=== PATIENT | male | born 1955 | race Caucasian/White ===

== ENCOUNTER → 2017-09-26 15:09 | Outpatient (CLI) | payer BC, SELFPAY ==
--- NOTE | 2017-09-26 15:19 | MR_ITS ---
MR head/brain wo con Ordering Physician: Naty Greene MD Patient Age: 61 years: Male HISTORY: ITS.REASON: IMBALANCE Balance problems 2 weeks. Not disease but off balance that comes and goes. More left side. Worsened morning. TECHNIQUE: : Noncontrast Multiplanar FLAIR, T1, T2 weighted images along with axial diffusion/ADC imaging performed on 1.5 T. Siemens, MRI.. COMPARISON : FINDINGS Diffusion images show no recent infarct. Normal cranial cervical junction. Sella and to a dalila unremarkable. The ventricles and basal cisterns appear satisfactory. No territorial infarct no subdural collection. A few faint tiny high signal deep white matter foci seen at cerebral hemispheres anteriorly barely evident as seen on axial image 17. Period most compatible a few pinpoint small vessel deep white matter ischemic foci, seen agent brain. . Orbits and globes unremarkable. Borderline mucosal thickening ethmoid air cells. Sphenoid sinus frontal sinus clear unremarkable. Only scant mucosal thickening inferior right > left maxillary sinuses on sagittal view Posterior fossa. Cranial nerve VII and VIII unremarkable CP angles clear IACs unremarkable. Mastoid air cells well aerated and clear. Cerebellum satisfactory cranial cervical junction satisfactory. IMPRESSION: . No mass. No subdural collection . No acute infarct MRI the brain basically normal for age-Only note very few very faint pinpoint high signal foci deep white matter most compatible with a few small vessel deep white matter ischemic foci in this age patient Regarding imbalance symptoms: posterior fossa & IACs unremarkable.
== END ==
PROVIDERS: PCP Family Medicine; Visit Provider Family Medicine
DX: R26.89 Other abnormalities of gait and mobility (principal)
CPT/HCPCS: 70551

== ENCOUNTER → 2018-01-09 09:31 | Outpatient (CLI) | payer BC, SELFPAY ==
--- NOTE | 2018-01-09 09:36 | XR_ITS ---
EXAM: XR lumbar spine min 4V HISTORY: ITS.REASON: LUMBAGO WITH SCIATICA ORDERING PHYSICIAN: Naty Greene MD PATIENT AGE: 62 years COMPARISON: FINDINGS: There is normal alignment. There is mild degenerative disc disease at L1-L2 and L4-L5. Minimal anterolisthesis of L5 on S1 of 3 mm. There is 2.8 cm area of sclerosis involving the right ilium at the SI joint area not significantly changed from 01/29/2013. Mild facet arthritic changes are present at L5-S1. IMPRESSION: 1. Mild degenerative disc disease L1-L2 and L2-L3 with facet arthritic changes at L5-S1. The degenerative disc disease is slightly worse when compared to the previous exam
== END ==
PROVIDERS: PCP Family Medicine; Visit Provider Family Medicine
DX: M54.42 Lumbago with sciatica, left side (principal)
CPT/HCPCS: 72110

== ENCOUNTER → 2020-08-13 16:30 | Outpatient (CLI) | payer MEDICARE, OTHER, SELFPAY ==
[2020-08-13 17:41] LABS: Basophils # 0.1 K/mm3 (0-0.2); Basophils % 1.4 % (0.1-2.0); Eosinophils # 0.1 K/mm3 (0.0-0.4); Eosinophils % 2.6 % (0.1-12.0); Hematocrit 44.3 % (42.0-52.0); Hemoglobin 15.1 g/dL (14.1-18.0); Lymphocytes # 1.5 K/mm3 (0.7-4.5); Lymphocytes % 26.9 % (10-50); Mean Corpuscular Volume 94.3 fl (80-94); Mean Platelet Volume 8.3 fl (7.4-10.4); Monocytes # 0.4 K/mm3 (0.1-1.0); Monocytes % 7.3 % (1.7-9.3); Neutrophils # 3.4 K/mm3 (1.8-7.8); Neutrophils % 61.8 % (37.0-80.0); Platelet Count 185 K/mm3 (142-424); Red Cell Distribution Width 14.6 % (11.5-17.5); White Blood Count 5.5 K/mm3 (4.8-10.8)
== END ==
PROVIDERS: PCP Family Medicine; Visit Provider Physician Assistant
DX: Z03.818 Encounter for observation for suspected exposure to other biological agents ruled out (principal)
CPT/HCPCS: 36415; 85025; U0003

== ENCOUNTER → 2022-01-29 13:47 | Outpatient (CLI) | payer MEDICARE, OTHER, SELFPAY ==
[2022-02-05 15:10] LABS: 1,25 Dihydroxy Vitamin D 33 pg/mL (.); 1,25-Dihydroxy, Vitamin D-2 21 pg/mL (.); 1,25-Dihydroxy, Vitamin D-3 12 pg/mL (.)
== END ==
PROVIDERS: PCP Family Medicine; Visit Provider Orthopaedic Surgery
DX: E55.9 Vitamin D deficiency, unspecified (principal)
CPT/HCPCS: 36415; 82652

== ENCOUNTER 2023-01-20 11:00 | Outpatient (RCR) | payer MEDICARE, OTHER, SELFPAY ==
--- NOTE | 2022-12-08 12:08 | HMH.PTOPEV ---
PT Outpatient Evaluation Rehab PT Outpatient Evaluation Start: 12/08/22 11:05 Freq: Status: Active Protocol: Document 12/08/22 11:05 DAPHNE (Rec: 12/08/22 12:07 DAPHNE [id number]) E-signed By Lydia Mitchell, PT Outpatient Therapy Subjective History Subjective History Pt is a 67 y/o male who reports to PT s/p R lapidus bunionectomy and 2nd hammer toe repair on 10/12/22. Pt denies complications or falls post-surgery. Pt reports he has a constant dull ache on the top of his foot along his incisions and numbness along the top & bottom of the foot. Pt reports he also gets intermittent sharp, shooting pain along the 1st and 2nd toes. Pt reports his main complaint is continued swelling with inability to wear a shoe on the R foot. Pt reports he had a followup with his MD yesterday where they took radiographs with good report. Pt reports he returns to his MD for another follow- up in 2 months. Medical History: Pre-diabetic Girth: 26 cm at MT, 26.5 cm at proximal incision Chief Complaint Pain,Stiff,Swelling, Paresthesia Symptom Type Sharp,Dull,Numbness,Shooting Symptoms Relieved By Ice,Elevation Symptoms Aggravated By Physical Activity,Walking Prior Functional Limitations None Current Functional Limitations Standing,Recreation Activity, Walking Symptom Description Constant but Variable Level of pain today (0-10) 1 Pain scale - at its best (0-10) 1 Pain scale - at its worst (0-10) 7 Ankle/Foot Eval Gait Observation General Gait Pattern Observation Antalgic Gait,Decrease Weight Bear (R) Assistive Device Ambulation Assistive Device None Palpation Tenderness right Ankle/Foot Palpation Overall Comment 1st and 2nd toe ROM Ankle/Foot Dorsiflexion w/Knee Extended 15 Active Range Motion (degrees) Ankle/Foot Plantar Flexion Active Range 40 of Motion (degrees) Ankle/Foot Eversion Active Range of 20 Motion (degrees) Ankle/Foot Inversion Active Range of 20 Motion (degrees
--- NOTE | 2023-01-05 12:02 | HMH.RHREAS ---
Rehab Reassessment Rehab OP Re-assessment Start: 01/05/23 11:45 Freq: Status: Active Protocol: Document 01/05/23 11:45 DAPHNE (Rec: 01/05/23 12:01 DAPHNE [id number]) E-signed By Lydia Mitchell PT Rehab Re-assessment Subjective Subjective Pt reports he feels 50% or more improved since starting PT. Pt reports general pain of the foot with prolonged activity but states he is able to walk longer and perform yard work now. Pt reports he has intermittent brief sharp shooting pain along the great toe that randomly occur without provocation rated 8/10 . Pt also reports continued numbness along the top and bottom of all toes although slightly improved on the dorsal aspect of the foot. Pt states he continues to have swelling with inability to don a tennis shoe for longer than 30 minutes. Pt reports he has been wearing Hey Dudes because they are the only shoe he feels comfortable in due to swelling. Pt reports he is compliant with his HEP and has been wearing compression socks. Objective Objective Notes R ankle palpation: pain along anterior tibialis and dorsum of the great toe R ankle AROM: 15 DF, PF 40, Inv 30, Ev 25 R ankle MMT: 5/5 grossly, pain with resisted dorsiflexion and eversion R ankle edema: 25 cm circumference of MTP, 25 cm at proximal incision (26.5 cm on IE) R great to extension/flex: 30/ 20 Gait: FWB without AD, non- antalgic Assessment Progress Assessment Progressing as Expected Assessment Notes Pt has attended 7 PT visits consisting of aerobic exercise , CAREN lewis
== END 2023-01-20 11:05 | disposition home or self-care (01) ==
LOC: PT 11:00
PROVIDERS: PCP Family Medicine; Visit Provider Orthopaedic Surgery
DX: M79.671 Pain in right foot (principal)
CPT/HCPCS: 97010; 97014; 97016; 97110; 97112; 97140; 97163; 97164; 97530; G0283

== ENCOUNTER → 2023-02-08 12:47 | Outpatient (CLI) | payer MEDICARE, OTHER, SELFPAY ==
--- NOTE | 2023-02-08 12:50 | CT_ITS ---
FINAL REPORT TECHNIQUE: Thin section axial CT images with coronal and sagittal reformats were performed. This study was performed with techniques to keep radiation doses as low as reasonably achievable (ALARA). Individualized dose reduction techniques using automated exposure control or adjustment of mA and/or kV according to the patient''s size were employed. CLINICAL HISTORY: FIRST METATARSAL FX FINDINGS: There are postoperative changes in the medial midfoot and forefoot with screw plate and multiple screws. There are postoperative changes of the distal 2nd metatarsal. There is medial subluxation of the 1st proximal phalanx at the metatarsophalangeal joint. There are degenerative changes of the medial midfoot. There is chronic calcification inferior to the medial malleolus. Probable lipoma is seen in the calcaneal tuberosity. IMPRESSION: Postsurgical changes as detailed above. Probable lipoma in the calcaneal tuberosity. Reviewed, Interpreted and Dictated by Maximiliano Mccartney III, MD Transcribed by Tara Sparks Authenticated and [facility]
[2023-02-08 13:36] LABS: Basophils % 0.8 % (0.1-2.0); Eosinophils # 0.2 K/mm3 (0.0-0.4); Hemoglobin 15.9 g/dL (14.1-18.0); Lymphocytes # 1.2 K/mm3 (0.7-4.5); Lymphocytes % 22.1 % (10-50); Mean Corpuscular HGB Conc 31.9 g/dL (31.8-35.4); Mean Corpuscular Hemoglobin 29.3 pg (27.0-31.2); Mean Corpuscular Volume 91.9 fl (80-94); Mean Platelet Volume 8.2 fl (7.4-10.4); Monocytes # 0.4 K/mm3 (0.1-1.0); Monocytes % 6.3 % (1.7-9.3); Neutrophils # 3.8 K/mm3 (1.8-7.8); Neutrophils % 67.9 % (37.0-80.0); Platelet Count 182 K/mm3 (142-424); Red Blood Count 5.44 M/mm3 (4.60-6.20); Red Cell Distribution Width 14.2 % (11.5-17.5); White Blood Count 5.6 K/mm3 (4.8-10.8)
[2023-02-08 14:14] LABS: Alanine Aminotransferase 26 U/L (12-78); Albumin Level 4.5 g/dl (3.5-5.0); Alkaline Phosphatase 89 U/L (38-126); Anion Gap 14.6 mEq/L (5-15); Aspartate Amino Transferase 34 U/L (17-59); Bilirubin,Total 0.7 mg/dl (0.2-1.3); Blood Urea Nitrogen 15 mg/dl (9-20); Carbon Dioxide 26 mmol/L (22.0-30.0); Chloride 102 mmol/L (98-107); Estimated Glomerular Filt Rate 84 ml/min (>60); GFR (African American) 101 ML/MIN (>60); Globulin 2.2 g/dL (1.3-3.2); Glucose 92 mg/dl (74-100); Potassium 4.6 mmoL/L (3.5-5.1); Sodium 138 mmol/L (136-145); Total Protein,Serum 6.7 g/dl (6.3-8.2)
[2023-02-08 14:21] LABS: C-Reactive Protein 2.2 mg/L (0-4)
[2023-02-08 14:44] LABS: Thyroid Stimulating Hormone 2.37 uIU/mL (0.465-4.68)
[2023-02-08 16:40] LABS: Erythrocyte Sedimentation Rate 1 mm/hr (0-20)
[2023-02-09 10:46] LABS: Prealbumin 26 mg/dL (10-36)
[2023-02-16 05:19] LABS: 1,25 Dihydroxy Vitamin D 36 pg/mL (.); 1,25-Dihydroxy, Vitamin D-2 23 pg/mL (.); 1,25-Dihydroxy, Vitamin D-3 13 pg/mL (.)
== END ==
PROVIDERS: PCP Family Medicine; Visit Provider Orthopaedic Surgery
DX: M79.671 Pain in right foot (principal); M96.0 Pseudarthrosis after fusion or arthrodesis; E11.9 Type 2 diabetes mellitus without complications; Z79.84 Long term (current) use of oral hypoglycemic drugs; Z79.899 Other long term (current) drug therapy
CPT/HCPCS: 36415; 73700; 80053; 82652; 84134; 84443; 85025; 85651; 86140

== ENCOUNTER → 2023-08-05 13:40 | Outpatient (CLI) | payer MEDICARE, OTHER, SELFPAY ==
[2023-08-05 14:33] LABS: Basophils % 0.5 % (0.1-2.0); Eosinophils # 0.1 K/mm3 (0.0-0.4); Eosinophils % 2.3 % (0.1-12.0); Hematocrit 45.7 % (42.0-52.0); Hemoglobin 15.4 g/dL (14.1-18.0); Lymphocytes # 1.1 K/mm3 (0.7-4.5); Mean Corpuscular HGB Conc 33.7 g/dL (31.8-35.4); Mean Corpuscular Hemoglobin 31.3 pg (27.0-31.2); Mean Corpuscular Volume 92.8 fl (80-94); Mean Platelet Volume 8.6 fl (7.4-10.4); Monocytes # 0.4 K/mm3 (0.1-1.0); Monocytes % 8.3 % (1.7-9.3); Neutrophils # 2.7 K/mm3 (1.8-7.8); Neutrophils % 62.9 % (37.0-80.0); Platelet Count 158 K/mm3 (142-424); Red Blood Count 4.92 M/mm3 (4.60-6.20); Red Cell Distribution Width 14.1 % (11.5-17.5); White Blood Count 4.3 K/mm3 (4.8-10.8)
[2023-08-05 14:51] LABS: Chloride 105 mmol/L (98-107); Potassium 4.3 mmoL/L (3.5-5.1); Sodium 139 mmol/L (136-145)
[2023-08-05 14:53] LABS: Alanine Aminotransferase 33 U/L (12-78); Alkaline Phosphatase 77 U/L (38-126); Aspartate Amino Transferase 35 U/L (17-59); Bilirubin,Total 0.5 mg/dl (0.2-1.3); Blood Urea Nitrogen 18 mg/dl (9-20); Estimated Glomerular Filt Rate 74 ml/min (>60); GFR (African American) 90 ML/MIN (>60)
[2023-08-05 14:54] LABS: Albumin Level 4.6 g/dl (3.5-5.0); Albumin/Globulin Ratio 2.2 (1.1-1.8); Anion Gap 12.3 mEq/L (5-15); Calcium 8.9 mg/dl (8.4-10.2); Carbon Dioxide 26 mmol/L (22.0-30.0); Globulin 2.1 g/dL (1.3-3.2); Glucose 122 mg/dl (74-100); Total Protein,Serum 6.7 g/dl (6.3-8.2)
[2023-08-05 15:00] LABS: C-Reactive Protein 2.2 mg/L (0-4)
[2023-08-05 15:29] LABS: Hemoglobin A1C 5.8 % (4.0-6.0)
[2023-08-05 16:17] LABS: Erythrocyte Sedimentation Rate 5 mm/hr (0-20)
[2023-08-05 18:59] LABS: Thyroid Stimulating Hormone 1.89 uIU/mL (0.465-4.68)
[2023-08-06 10:05] LABS: Prealbumin 25 mg/dL (10-36)
[2023-08-15 15:09] LABS: 1,25 Dihydroxy Vitamin D 60 pg/mL (.); 1,25-Dihydroxy, Vitamin D-2 43 pg/mL (.); 1,25-Dihydroxy, Vitamin D-3 17 pg/mL (.)
== END ==
PROVIDERS: PCP Family Medicine; Visit Provider Orthopaedic Surgery
DX: M20.11 Hallux valgus (acquired), right foot (principal); R73.09 Other abnormal glucose; Z79.899 Other long term (current) drug therapy
CPT/HCPCS: 36415; 80053; 82652; 83036; 84134; 84443; 85025; 85651; 86140

== ENCOUNTER 2023-12-29 06:30 | Outpatient (CLI) | payer MEDICARE, OTHER, SELFPAY ==
--- NOTE | 2023-12-29 06:36 | CT_ITS ---
FINAL REPORT TECHNIQUE: Thin section axial CT images with coronal and sagittal reformats were performed. This study was performed with techniques to keep radiation doses as low as reasonably achievable (ALARA). Individualized dose reduction techniques using automated exposure control or adjustment of mA and/or kV according to the patient''s size were employed. CLINICAL HISTORY: EVAL FOR UNION OF 1ST TMT COMPARISON: 02/08/2023 FINDINGS: There are postoperative changes from fusion of the 1st tarsometatarsal joint. No bony fusion is evident. There are increased hypertrophic changes of the tarsometatarsal joint. There has been interval removal of fixation screw of the 2nd metatarsal head. No acute fracture is identified. Incidental note is made of a lipoma of the posterior calcaneus. IMPRESSION: No acute bony abnormality. Postoperative changes of the 1st tarsometatarsal without bony union. Reviewed, Interpreted and Dictated by Naty Dial MD Transcribed by Tara Sparks Authenticated and [facility]
== END 2023-12-29 23:59 | disposition home or self-care (01) ==
LOC: RAD 06:31
PROVIDERS: PCP Family Medicine; Visit Provider Orthopaedic Surgery
DX: M79.671 Pain in right foot (principal)
CPT/HCPCS: 73700

== ENCOUNTER 2024-02-07 11:00 | Outpatient (RCR) | payer MEDICARE, OTHER, SELFPAY | END 2024-02-07 12:00 | disposition home or self-care (01) | LOC: PT 11:00 | PROVIDERS: Visit Provider Orthopaedic Surgery | DX: M79.671 Pain in right foot (principal) | CPT/HCPCS: 97110; 97163; 97530 ==

== ENCOUNTER 2025-03-04 14:01 | Outpatient (CLI) | payer MEDICARE, OTHER, SELFPAY ==
--- OUTSIDE RECORDS SUMMARY | 2024-09-24 06:30 | XMS_ITS ---
Author Organization [facility] Address [address] [place] [id number] Care Team Providers Care Director Of Customer Acquisition Name Role Phone Jaron Leon Primary Care Provider [phone] Ashok Greene [phone] Allergies Allergen (clinical drug ingredient) Drug/Non Drug Allergy documented on EMR Reaction Allergy Type Onset Date Status diphenhydramine Benadryl Allergy restless legs Drug Allerg y Active Results Component Value Reference Range Notes CBC Venipuncture (in house) Reviewed date:09/24/2024 12:07:46 PM Interpretation: Performing Lab: Notes/Report: wbc 5.1 3.5 - 10 lymph 20.1% 15 - 50 mid 4.9% 2 - 15 gran 75.0% 35 - 80 rbc 5.33 3.5 - 5.5 hgb 15.5 11.5 - 16.5 hct 47.0 35 - 55 mcv 88.1 75 - 100 mch 29.1 25 - 35 mchc 33.1 31 - 38 platlet 177 100 - 400 Glycohemoglobin A1c (in hous e) Reviewed date:09/24/2024 12:08:29 PM Interpretation: Performing Lab: Notes/Report: glycohemoglobin 6.0% 5 - 6.5 % P-Comprehensive Metabolic Pa carmel (CMP) Reviewed date:10/03/2024 09:44:59 AM Interpretation:gluc 116, a1c 6.0 addressed in OV Performing Lab: Notes/Report: Test performed by [employer] [facility], [facility] [address] [place] [address] , [address], [place] [address] Zeb Clemens MD, Invasive Manager CLIA: [id number] Sodium 139 135-145 mmol/L Potassium 4.5 3.5-5.3 mmol/L Chloride 104 97-108 mmol/L CO2 28 22-32 mmol/L Glucose 116 65-99 mg/dL BUN 19 8-23 mg/dL Creatinine 1.08 0.70-1.30 mg/dL Calcium 9.5 8.6-10.4 mg/dL eGFR by Creatinine 73 >59 mL/min/1.73m2 Protein 6.9 6.0-8.3 g/dL Albumin 4.8 3.5-5.3 g/dL Alkaline Phosphatase 65 40-129 IU/L ALT (SGPT) 25 <5-55 IU/L AST (SGOT) 26 <5-46 IU/L Bilirubin, Total 0.5 <0.2-1.2 mg/dL A/G Ratio 2.3 1.1-2.5 P-PSA Reviewed date:10/03/2024 09:44:59 AM Interpretation:Normal Performing Lab: Notes/Report: Test performed by [facility] [address] [place] [address] , [address], [place] [address] Zeb Clemens MD, Invasive Manager CLIA: [id number] PSA 1.13 <4.00 ng/mL Please note this is an ultrasensitive PSA assay with a lower limit of detection of 0.014 ng/mL. This test is performed by the [employer] ECLIA methodology. Values obtained with different assay methods or kits cannot be directly compared. P-Microalbumin/Creatinine, R andom Urine Sample Reviewed date:10/03/2024 09:44:59 AM Interpretation:Normal Performing Lab: Notes/Report: Test performed by [facility] [address] [place] [address] , [address], [place] [address] Zeb Clemens MD, Invasive Manager CLIA: [id number] Albumin/Creatinine Ratio, Urine 5 0-30 ug/m g Microalbumin, Urine, Random 1.3 Creatinine, Urine 264.9 REASON FOR VISIT 6 month check, Needs labs with PSA, diabetic eye exam, & flu vaccine Medications Medication SIG (Take, Route, Frequency, Duration) Notes Start Date End Date Status Mupirocin 2 % 1 application Externally Twice a day; Duration: 5 day(s) 03/19/2024 Active EQ Allergy Relief (Cetirizine) 10 MG Take 1 tablet by mouth once daily; Duration: 90 Active Omeprazole 20 MG Take 1 capsule by mouth once daily for 90 days; Duration: 90 Active OSTEO-BIFLEX 1 P.O. TWICE A DAY Active Sertraline HCl 50 MG 1 tablet Orally Once a day; Duration: 90 days Active Allopurinol 100 MG 1 tab(s) orally once a day; Duration: 30 Not-Taking Fluticasone Propionate 50 MCG/ACT 1 spray(s) each nostril once a day; Duration: 60 Active metFORMIN HCl 500 MG Take 1 tablet by mouth twice daily; Duration: 90 days Active CPAP SUPPLIES DIRECTED diagnosis code: G47.33 Sleep apnea in adult 09/02/2021 Active Sulindac 200 MG 1 tab(s) orally 2 times a day prn; Duration: 90 days Active Pataday 0.2 % 1 gtt in each affected eye once a day; Duration: 10 day(s) 12/12/2019 Active PROBIOTICS P.O. DAILY Active Cartia XT 240 MG 1 cap(s) orally once a day 10/26/2017 Active Vital Signs Blood pressure systolic 112 mm Hg 09/24/19 25 Blood pressure diastolic 74 mm Hg 025 Heart Rate 69 /min 09/24/2024 Height 69.25 in 09/24/2024 Weight 197.0 lbs 09/24/2024 BMI 28.88 kg/m2 09/24/2024 Encounters Encounter Location Date Provider Diagnosis [facility] [facility] [address] [place] [id number] 09/24/2024 Ashok Greene Type 2 diabetes mellitus without complication E11.9 ; Biceps tendinitis of right upper extremity M75.21 and Benign prostatic hyperplasia without lower urinary tract symptoms N40.0 Assessments Encounter Date Diagnosis (ICD Code) Assessment Notes Treatment Notes Treatment Clinical Notes Section Notes 09/24/2024 Type 2 diabetes mellitus without complication (ICD-10 - E11.9) 09/24/2024 Biceps tendinitis of right upper extremity (ICD-10 - M75.21) 09/24/2024 Benign prostatic hyperplasia without lower urinary tract symptoms (ICD-10 - N40.0) Plan Of Treatment Medication Medication Name Sig Start Date Stop Date Notes Sulindac 200 MG 1 tab(s) orally 2 ti mes a day prn; Duration: 90 days Next Appt Details Follow Up: 6 Months, Reason: Provider Name:Ashok Gonzalez er, 03/25/2025 10:30:00 AM, [address] [facility] [address], [address], [place], [place], [id number], Progress Notes * LAISHA COTEDOB: 4 (69 yo M)Acc No.[id number]:09/24/2024 Progress Notes Patient: LAISHA CAMPBELL Provider: Ashok Greene M.D. :1955 A ge:68 Y S ex:Male Date:09/24/2024 Address:[address] [place] [address], [id number] Pcp:Jaron Leon Subjective: * Chief Complaints: * 1 . 6 month check. 2. Needs labs with PSA, diabetic eye exam, & flu vaccine. * HPI: C ardiology: The patient is here for a check up on Hypertension and Diabetes. Pt states he is doing good and denies any new concerns. Pt states he is still having some right shoulder pain. Pt rates the pain about a 1/10 but at its worse it can be 8-9/10. 2007 MRI reviewed, showed tendinitis. Pt is fasting. Denies : Chest Pain. D enies : Short of Breath. D enies : Dizziness. D enies : Palpitations. E NT/respiratory: Sleep Apnea P t is compliant with CPAP/BiPAP, he will be needing a new order for CPAP and supplies soon. * ROS: D ERMATOLOGY: no R jason. n o H radha. G ASTROENTEROLOGY: no N ausea. n o V omiting. n o D iarrhea.? U ROLOGY: no D ifficulty urinating. n o B lood in urine. * Medical History: L ow white blood cell count, Hyperuricemia, Allergic rhinitis, Esophageal reflux, Holter 02/16/2017 PVC's and run of [place], Shingles vaccine, Moderna Covid vaccine x2, COVID 19 Booster, Moderna. * Surgical History: n ose-deviated septum 2004, tonsillectomy, uvula, soft palate 07/05, left knee repair 02/09, heart cath - [place] 07/2017, colonoscopy, Dr. Almanza 01/2019, bunion and hammer toe, Dr. De Leon 10/12/22. * Hospitalization/Major Diagno stic Procedure: a t age 24- fx to ankle (kept overnight) , [facility] ER/Stay - heart palpitations 08/02-08/03/2017. * Family History: F ather: alive 79 yrs. M other: alive 76 yrs, diabetes. P aternal Grand Father: diabetes. 2 sister(s) . 2 son(s) . . * Social History: C URRENT TOBACCO USE S moking Status: Patient does NOT smoke. C affeine: yes, frequency:daily. Exercise: no. Home smoke detector use: yes. Marital Status: . Past smoking status: no, Smoking status: Does not smoke. Alcohol: no. * Medications: T aking OSTEO-BIFLEX 1 P.O. TWICE A DAY , Taking Cartia XT 240 MG Capsule Extended Release 24 Hour 1 cap(s) orally once a day , Taking PROBIOTICS P.O. DAILY , Taking Pataday 0.2 % Solution 1 gtt in each affected eye once a day , Taking Fluticasone Propionate 50 MCG/ACT Suspension 1 spray(s) each nostril once a day , Taking CPAP SUPPLIES DIRECTED , Notes to Pharmacist: diagnosis code: G47.33 Sleep apnea in adult, Taking metFORMIN HCl 500 MG Tablet Take 1 tablet by mouth twice daily , Taking Mupirocin 2 % Ointment 1 application Externally Twice a day , Taking Omeprazole 20 MG Capsule Delayed Release Take 1 capsule by mouth once daily for 90 days , Taking EQ Allergy Relief (Cetirizine) 10 MG Tablet Take 1 tablet by mouth once daily , Taking Sertraline HCl 50 MG Tablet 1 tablet Orally Once a day , Taking Sulindac 200 MG Tablet 1 tab(s) orally 2 times a day , Not-Taking Allopurinol 100 MG Tablet 1 tab(s) orally once a day , Medication List reviewed and reconciled with the patient * Allergies: B enadryl Allergy: restless legs - Side Effects. Objective: * Vitals: W t:197.0, Temp:97.7, BP:112/74, HR:69, Nurse:DAREN, Ht: 69.25, BMI:28.88. * Examination: G eneral Examination: General Appearance: N AD. H EENT: s mall lesion of the inner nare on left. O ral cavity: n o lesions, mucosa moist and WNL, no erythema. N peggy: s upple, no lymphadenopathy, no carotid bruits. C hest: n ormal shape and expansion. H eart: R SR. L ungs: c lear to auscultation. A bdomen: soft and nontender, no organomegaly or masses. N eurologic Exam: I ntact, gait normal. S kin: n ormal, no rash. B ack: normal. E xtremities: t here is tenderness at biceps tendon on the right, not tender at deltoid insertion, slight tenderness over cuff area, not la over infraspinatous, not tender over supraspinatous. Assessment: * Assessment: 1. T ype 2 diabetes mellitus without complication - E11.9 (Primary) 2 . B iceps tendinitis of right upper extremity - M75.21 3 . B enign prostatic hyperplasia without lower urinary tract symptoms - N40.0 Plan: * Treatment: Value Reference Range A /G Ratio 2.3 1.1-2.5 - * A lbumin 4.8 3.5-5.3 - g/dL * A lkaline Phosphatase 65 40-129 - IU/L * A LT (SGPT) 25 <5-55 - IU/L * A ST (SGOT) 26 <5-46 - IU/L * B ilirubin, Total 0.5 <0.2-1.2 - mg/dL * B UN 19 8-23 - mg/dL * C alcium 9.5 8.6-10.4 - mg/dL * C hloride 104 97-108 - mmol/L * C O2 28 22-32 - mmol/L * C reatinine 1.08 0.70-1.30 - mg/dL * G lucose 116 H 65-99 - mg/dL * P otassium 4.5 3.5-5.3 - mmol/L * S odium 139 135-145 - mmol/L * P rotein 6.9 6.0-8.3 - g/dL * e GFR by Creatinine 73 >59 - mL/min/1.73m2 * Dilcia King 10/03/2024 9:44 :48 AM >Patient informed of normal results. ?LAB: P-Microalbumin/Creatinine, Random Urine Sample (Collection Date & Time - 09/24/2024 10:39 AM)?Normal* Value Reference Range A lbumin/Creatinine Ratio, Urine 5 0-30 - ug /mg * C reatinine, Urine 264.9 - mg/dL * M icroalbumin, Urine, Random 1.3 - mg/dL * Dilcia King 10/03/2024 9:44 :48 AM >Patient informed of normal results. ?LAB: CBC Venipuncture (in house) (Collection Date & Time - 09/24/2024)* Value Reference Range w bc 5.1 3.5 - 10 * l ymph 20.1% 15 - 50 * m id 4.9% 2 - 15 * g ran 75.0% 35 - 80 * r bc 5.33 3.5 - 5.5 * h gb 15.5 11.5 - 16.5 * h ct 47.0 35 - 55 * m cv 88.1 75 - 100 * m ch 29.1 25 - 35 * m chc 33.1 31 - 38 * p latlet 177 100 - 400 * Dilcia King 09/24/2024 10: 53:18 AM > , Provider reviewed results while patient in office. ?LAB: Glycohemoglobin A1c (in house) (Collection Date & Time - 09/24/2024)* Value Reference Range g lycohemoglobin 6.0% 5 - 6.5 % * Dilcia King 09/24/2024 10: 52:42 AM > , Provider reviewed results while patient in office. 2.?Biceps tendinitis of right upper extremity? Refill Sulindac Tablet, 200 MG, 1 tab(s), orally, 2 times a day prn, 90 days, 180, Refills 1.? 3.?Benign prostatic hyperplasia without lower urinary tract symptoms?LAB: P-PSA (Collection Date & Time - 09/24/2024 10:39 AM)?Normal* Value Reference Range P SA 1.13 <4.00 - ng/mL * Dilcia King 10/03/2024 9:44 :48 AM >Patient informed of normal results. * Procedure Codes: 8 5025 CBC WITH AUTO DIFF, 94306 GLYCATED HEMOGLOBIN TEST, Modifiers: QW , G2211 Complex e/m visit add on, 3044F HG A1C LEVEL LT 7.0% * Follow Up: 6 Months * Images: Billing Information: * Visit Code: 04853 Office Visit, Est Pt., Level 4. * Procedure Codes: 86305 CBC WITH AUTO DIFF. 07589 GLYCATED HEMOGLOBIN TEST. Modifiers: QW G2211 Complex e/m visit add on. 3044F HG A1C LEVEL LT 7.0%. * Electronic signature of Ashok Greene MD on 03/04/2025 at 02:08 PM EDT Sign off status: Pending * Provider: Ashok Greene M.D. Date: 0 09/24/2024 Generated for Printi ng/Faxing/eTransmitting on: 0 03/04/2025 02:08 PM EDT History and Physical Notes * HPI (History of Present Illness) Category Sub-Category Detail Notes Category Not es ENT/respiratory Sleep Apnea Pt is compliant with CPAP/BiPAP, he will be needing a new order for CPAP and supplies soon Cardiology Short of Breath Chest Pain Palpitations Dizziness Examination Category Sub-Category Detail Notes Category Not es General Examination HEENT: small lesion of the inner nare on left Heart: RSR Lungs: clear to auscultatio n Abdomen: soft and nontender, no organomegaly or masses Extremities: there is tenderness at biceps tendon on the right, not tender at deltoid insertion, slight tenderness over cuff area, not la over infraspinatous, not tender over supraspinatous General Appearance: NAD Skin: normal, no rash Neurologic Exam: Intact, gait normal Neck: supple, no lymphaden opathy, no carotid bruits Oral cavity: no lesions, mucosa m oist and WNL, no erythema Peripheral pulses: Back: normal Chest: normal shape and exp ansion
--- OUTSIDE RECORDS SUMMARY | 2024-10-17 11:00 | XMS_ITS ---
Author Organization [facility] Address [facility] [address] [place] [phone] Care Team Providers Care Electronic Test Technician Name Role Phone Jaron Leon Primary Care Provider Ferny Santana Unavailable [phone] REASON FOR VISIT flu shot only Immunizations Vaccine Route Administration Date Status Comme nts Fluzone High Dose (65yr and older) IM Intramuscular 10/17/2024 Administered Encounters Encounter Location Date Provider Diagnosis [facility] [address] [facility] [address] [place] [id number] 10/17/2024 Ferny Santana Encounter for immunization Z23 Assessments Encounter Date Diagnosis (ICD Code) Assessment Notes Treatment Notes Treatment Clinical Notes Section Notes 10/17/2024 Encounter for immunization (ICD-10 - Z23) Plan Of Treatment Next Appt Details Provider Name:Ashok Diogenes Lisa er, 03/25/2025 10:30:00 AM, [address] [facility], [address], [place], [place], [phone], Progress Notes * LAISHA COTEDOB: (69 yo M)Acc No.[id number]:10/17/2024 Patient: LAISHA CAMPBELL Provider: Roxana Santana M.D. :1955 A ge:68 Y S ex:Male Date:10/17/2024 Address:[address] [place] [address], [place], [id number] Pcp:Jaron Leon Subjective: * Chief Complaints: * [...] Electronic signature of Lyndsay Santana MD on 03/04/2025 at 02:07 PM EDT Sign off status: Pending * Provider: Roxana Santana M.D. Date: 10/17/2024 Generated for Pura villalobos/Jamal/Anna on: 0 03/04/2025 02:07 PM EDT
--- OUTSIDE RECORDS SUMMARY | 2025-02-11 06:45 | XMS_ITS ---
Author Organization [facility] Address [address] [facility] [address] [place] [id number] Care Team Providers Care Affiliate Marketing Specialist Name Role Phone Jaron [place] Primary Care Provider [phone] Ferny Santana Unavailable [phone] Allergies Allergen (clinical drug ingredient) Drug/Non Drug [...] 02/11/2025 Encounters Encounter Location Date Provider Diagnosis [facility] [address] [phone] 02/11/2025 Ferny Santana Acute URI J06.9 ; [...] prn, Reason: Provider Name:Ashok Shetty [place], 03/25/2025 10:30:00 AM, [address] [place] [facility] [address], [address], [place], [place], [phone], Progress Notes * LAISHA COTEDOB: 4 (69 yo M)Acc No.[id number]:02/11/2025 Progress Notes Patient: LAISHA CAMPBELL Provider: Roxana Santana M.D. :1955 A ge:69 Y S ex:Male Date:02/11/2025 Address:[address] [place] [address], [facility] Pcp:Jaron [place] Subjective: * Chief Complaints: * [...] Diagno stic Procedure: A nkle Fracture 1979, [facility] ER/Stay - heart palpitations 08/02-01/2017. * [...] hyperlipidemia type - E78.5 3 . B HI 29.0-29.9,adult - Z68.29 Plan: * Treatment: Value [...] G 2211 Complex e/[place], [address] CAPILLARY BLOOD DRAW, 24750 CBC WITH AUTO DIFF, G8420 BMI<30 AND >=22 CALC & DOCU, 1036F TOBACCO NON-USER, G8783 BP SCR PRFRM RCMDD DEFIND SCR INTVL, G8752 MOST RECENT SYSTOLIC BP < 140MM HG, G8754 MOST RECENT DIASTOLIC BP < 90MM HG * Follow Up: p rn * Images: Billing Information: * Visit Code: 98478 Office Visit, Est Pt., Level 3. * Procedure Codes: G2211 Complex e/[place]. [address] CAPILLARY BLOOD DRAW. 39657 CBC WITH AUTO DIFF. G8420 BMI<30 AND [...] 0 02/11/2025 Generated for Pura villalobos/Jamal/eTransmitting on: 03/04/2025 02:07 PM EDT History and Physical Notes * [...]
--- NOTE | 2025-03-04 14:07 | CT_ITS ---
FINAL REPORT TECHNIQUE: Axial imaging of the lumbar spine was obtained without contrast. Sagittal and coronal reformatted images were also obtained and reviewed. This study was performed with techniques to keep radiation doses as low as reasonably achievable (ALARA). Individualized dose reduction techniques using automated exposure control or adjustment of mA and/or kV according to the patient's size were employed. CLINICAL HISTORY: L-SPINE PAIN COMPARISON: None FINDINGS: There is advanced disc space narrowing at L4-5. The vertebral alignment is normal. There is no malalignment. L1-L2: No evidence of central canal stenosis or neural foraminal narrowing. L2-L3: Mild disc bulge. Mild bilateral neural foraminal narrowing. L3-L4: Mild diffuse disc bulge. Mild bilateral neural foraminal narrowing. L4-L5: Moderate diffuse disc bulge. Endplate hypertrophy. Moderate bilateral neural foraminal narrowing. L5-S1: Mild diffuse disc bulge. Right posterior lateral disc protrusion. Asymmetric facet hypertrophy. Moderate right neural foraminal narrowing. IMPRESSION: Moderate bilateral neural foraminal narrowing at L4-5 and moderate right neural foraminal narrowing at L5-S1. Reviewed, Interpreted and Dictated by Jhonathan Sheikh MD Transcribed by Shruthi Dunbar Authenticated and [facility]
--- OUTSIDE RECORDS SUMMARY | 2025-03-04 14:08 | XMS_ITS | Encounter Summary ---
Author Organization [place] [address] Care Team Providers Care Senior Packaging Engineer Name Role Phone Oneil Escalera MD Unavailable [phone] Niels Greene MD Primary Care Provider [phone] Encounter Details Date Type Department Care Team (Late st Contact Info) Description 10/26/2017 Orders Only [facility] [address] [address] Oneil Escalera MD [address] [place] [address] Social History Tobacco Use Types Packs/Day Years Used Date Smoking Tobacco: Never Smokeless Tobacco: Never Alcohol Use Standard Drinks/Week Comments No 0 (1 standard drink = 0.6 oz pur e alcohol) Sex and Gender Information Value Date Recorded Sex Assigned at Not on file Legal Sex Male 11:29 AM EST Gender Identity Not on file Sexual Orientation Not on file documented as of this encounter Plan of Treatment Upcoming Encounters Date Type Department Care Team (Late st Contact Info) Description 09/20/2025 1:00 PM EST Office Visit [facility] [address] [facility] [address] [place] [address] Janet Monet APRN [address] [place] [address] documented as of this encounter Procedures Procedure Name Priority Date/Time Associated Diagnosis Comments EP LAB RECORDINGS Routine 10/26/2017 12:30 PM EST documented in this encounter Results * EP LAB RECORDINGS (10/26/2017 12:30 PM EST) 10/26/2017 12:3 0 PM EST Oneil Escalera MD CARDIAC CATH ORDERABLES Final Result Performing Organization Address City/State/[facility] Co de Phone Number [facility] [address] [place] [address] documented in this encounter Visit Diagnoses Not on filedocumented in this encounter Care Teams Senior Packaging Engineer Relationship Specialty Start Date End Date Niels Greene MD [facility] [place] [phone] PCP - General Family Medicine 08/12/17 Oneil Escalera MD [address] [place] [address] Consulting Physician Internal Medicine - Clinical Cardiac Electrophysiology 08/10/17 documented as of this encounter
--- OUTSIDE RECORDS SUMMARY | 2025-03-04 14:08 | XMS_ITS | Clinical Summary ---
Author Organization [facility] Arrhythmia [facility] Address [address] [facility] [address] [place] [address] Phone Care Team Providers Care Tile Finisher Name Role Phone Oneil Escalera MD Unavailable [phone] Niels Greene MD Primary Care Provider [phone] Allergies Active Allergy Reactions Criticality Noted Date Comments Animal Dander Swelling 08/12/2017 Eyes/face swell Diphenhydramine Hcl Other (See Comments) 2016 makes restless legs worse Grass Pollen Swelling 08/12/2017 Eyes/face swell Tree And Shrub Pollen Swelling 08/12/2017 Eyes/face swell Medications metFORMIN (GLUCOPHAGE) 500 mg Oral Tablet Take 1 Tab by mouth daily. 7 Active omeprazole (PRILOSEC) 20 mg Oral Capsule, Delayed Release(E.C.) Take 1 Cap by mouth nightly. 7 Active cetirizine (ZYRTEC) 10 mg Oral Tablet Take by mouth nightly. Active MULTIVIT-MIN/FA/L YCOPEN/LUTEIN (MEN 50 PLUS MULTIVITAMIN ORAL) Take 2 Tabs by mouth daily. Active L. RHAMNOSUS GG/INULIN (CULTURELLE PROBIOTICS ORAL) Take by mouth daily. Active CARTILAGE/COLLAGE N/BOR/HYALUR (JOINT HEALTH ORAL) Take 1 Tab by mouth daily. Active sulindac (CLINORIL) 150 mg Oral Tablet Take 150 mg by mouth 2 times daily (with meals). Active dilTIAZem (CARTIA XT) 240 mg Oral Capsule, Sust. Release 24 hrIndications:PVC (premature ventricular contraction) Take 1 Capsule by mouth daily. 90 Capsule 3 5 Active Active Problems Problem Noted Date Diagnosed Date RVOT ventricular tachycardia Type II diabetes mellitus Essential hypertension GERD (gastroesophageal reflux disease) PVC (premature ventricular contraction) Surgical History Surgery Date Site/Laterality Comments NOSE SURGERY KNEE SURGERY CARDIAC SURGERY 08/29/2016 CARDIAC CATHETERIZATION 08/03/2017 EAR SURGERY x 2 ABLATION OF DYSRHYTHMIC FOCUS 10/26/2017 EPS w/ VT Ablation Medical History Medical History Date Comments RVOT ventricular tachycardia (HCC) Type II diabetes mellitus (HCC) Essential hypertension GERD (gastroesophageal reflux disease) Sleep apnea CPAP setting 10 Arthritis Prostate disorder enlarged PVC (premature ventricular contraction) Family History Medical History Relation Name Comments Heart Disease Mother Heart Attack Paternal Grandfather ND at a ge 65 Anesth Problems Neg Hx Relation Name Status Comments Mother Paternal Grandfather Social History Tobacco Use Types Packs/Day Years Used Date Smoking Tobacco: Never Smokeless Tobacco: Never Tobacco Cessation:Counseling Given: Not Answered Alcohol Use Standard Drinks/Week Comments No 0 (1 standard drink = 0.6 oz pur e alcohol) Sex and Gender Information Value Date Recorded Sex Assigned at Not on file Legal Sex Male 11:29 AM EST Gender Identity Not on file Sexual Orientation Not on file Obstetrics History Last Filed Vital Signs Vital Sign Reading Time Taken Comments Blood Pressure 114/68 09/20/2024 1:01 PM EST Pulse 67 09/20/2024 1:01 PM EST Temperature - - Respiratory Rate 18 10/26/2017 6:00 PM EST Oxygen Saturation 94% 09/20/2024 1:01 PM EST Inhaled Oxygen Concentration - - Weight 89.8 kg (198 lb) 09/20/2024 1:01 PM EST Height 175.3 cm (5' 9 ) 09/20/2024 1:01 PM EST Body Mass Index 29.24 09/20/2024 1:01 PM EST Plan of Treatment Upcoming Encounters Date Type Department Care Team (Late st Contact Info) Description 09/20/2025 1:00 PM EST Office Visit [facility] [address] [address] Janet Monet, TELEGRAPH SERVICE CLERK [address] [phone] Health Maintenance Due Date Last Done Comments Wellness Exam Medicare 1958 Kidney Health: uACR 12/03/1963 Lipids 12/03/1963 Diabetic Eye Exam 12/03/1971 Hepatitis C Screening 12/03/1971 Cologuard 1998 Colon Cancer Screening 1998 Colonoscopy 1998 FIT 1998 Sigmoidoscopy 1998 Virtual Colonography 1998 RSV or 60+ (1 - Risk 60-74 years 1-dose series) 2013 Kidney Health: eGFR 10/26/2018 10/26/2017, 8 Pneumococcal Vaccine 50+ (2 of 2 - PPSV23, PCV20, or PCV21) 02/19/2019 12/25/2018 Hemoglobin A1c 06/16/2022 12/15/2021 COVID-19 Vaccine ( - 2023- season) 2024 09/09/2021, 01/21/2021, 12/24/2020 Influenza Vaccine (#1) 2025 , 07/10/2020, 06/21/2019, Additional history exists DTaP/TDaP/Td (3 - Td or Tdap) 12/25/2028 12/25/2018, 10/25/2014, 01/24/2002 Zoster Completed 11/19/2020, 09/17/2020 Hepatitis B Vaccine Aged Out No longe r eligible based on patient's age to complete this topic Meningococcal B Vaccine Aged Out No l onger eligible based on patient's age to complete this topic Procedures Procedure Name Priority Date/Time Associated Diagnosis Comments BASIC METABOLIC PANEL STAT 10/26/2017 11:17 AM EST from Last 3 Months or Most Recently Relevant to Health Maintenance Results * (ABNORMAL) BASIC METABOLIC PANEL (10/26/2017 11:17 AM EST) Sodium 140 136 - 145 mmol/L 10/26/2017 12:14 PM EST [facility] Potassium 4.4 3.5 - 5.0 mmol/L 10/26/2017 12:14 PM [facility] Chloride 101 98 - 107 mmol/L 10/26/2017 12:14 PM [facility] Total CO2 26 22 - 29 mmol/L 10/26/2017 12:14 PM [facility] Anion Gap 13 7 - 16 mmol/L 10/26/2017 12:14 PM [facility] Calcium 9.4 8.8 - 10.2 mg/dL 10/26/2017 12:14 PM [facility] Glucose Lvl 101(H) 82 - 100 mg/dL 10/26/2017 12:14 PM [facility] BUN 17 8 - 23 mg/dL 10/26/2017 12:14 PM [facility] Creatinine 1.15 0.67 - 1.30 mg/dL 10/26/2017 12:14 PM [facility] GFR Afr Am 78 mL/min/1.7 3 m2 10/26/2017 12:14 PM [facility] GFR Non Afr Am 67 mL/min/1.7 3 m2 10/26/2017 12:14 PM [facility] Comment: GFR Afr Am and GFR Non Afr Am calculated using CKD-EPI equation. GFR Category GFR(mL/min/1.73 m ) Kidney Function G1 >=90 Normal or high G2 60-89 Mildly decreased G3a 45-59 Mildly to moderately decreased G3b 30-44 Moderately to severely decreased G4 15-29 Severely decreased G5 <15 Kidney Failure Blood VENOUS BLOOD / Unknown Capillary / Unknown 10/26/2017 11:17 AM EST 10/26/2017 11:30 AM EST [facility] - 10/26/2017 12:14 PM EST Notify casting trucker if creatine is 1.5 or greater, and/or GFR <55, and/or potassium greater than or equal to 5.5 or less than or equal to 3.0. Do not repeat if done within past 10 days. us Oneil Escalera MD CHEMISTRY ORDERABLES Fin al Result [facility] [address] [address] from Last 3 Months or Most Recently Relevant to Health Maintenance Insurance MEDICARE [place] PART A AND B Member Subscriber Plan / Payer (Ef fective 2018-Present) Name:Ezio Atkins Member ID:[id number] Relation to Subscriber:Self Name:Ezio Atkins Subscriber ID:[id number] Payer ID:Not on file Group ID:Not on file Type:Not on file Address: [address] MEDICARE [place] PART A AND B [facility] INSURANCE Care Teams Tile Finisher Relationship Specialty Start Date End Date Niels Greene MD [facility] [place] [address] PCP - General Family Medicine 08/12/17 Oneil Escalera MD [address] [place] [address] [place] [address] Consulting Physician Internal Medicine - Clinical Cardiac Electrophysiology 08/10/17
--- OUTSIDE RECORDS SUMMARY | 2025-03-04 14:08 | XMS_ITS ---
Author Organization Unknown Medications Date Medication Dosage DosageUnit StartDate StopDate StopReason Active DoseQuantity DoseUnit Dispense DispenseUnit Refills NdcCode DrugCode PharmacyId IsPrescription MappedMedication Srcstatus 02/11 00:00 :00 Allopurinol 100 MG Tablet 0 30 5 0037 8013 701 P Discontinu ed 02/11 00:00 :00 Cartia XT 240 MG Capsule Extended Release 24 Hour 10/26/2017 00:00:00 1 7104026 9 905 P Taking 02/11 00:00 :00 CPAP SUPPLIES 09/02/2021 00:00:00 1 1 0 P Taking 02/11 00:00 :00 EQ Allergy Relief (Cetirizine ) 10 MG Tablet 1 90 Tablet 1 490 26624 875 Taking 01/07 00:00 :00 EQ Allergy Relief (Cetirizine ) 10 MG Tablet 1 90 Tablet 1 490 88595 875 Start 01/07 00:00 :00 EQ Allergy Relief (Cetirizine ) 10 MG Tablet 0 90 Tablet 1 490 49040 875 Stop 02/11 00:00 :00 Fluticasone Propionate 50 MCG/ACT Suspension 1 16 Gram 2 15417 082 901 Taking 12/19 00:00 :00 Fluticasone Propionate 50 MCG/ACT Suspension 1 16 Gram 2 93981 082 901 Start 12/19 00:00 :00 Fluticasone Propionate 50 MCG/ACT Suspension 0 16 5 0353889 7 099 Stop 02/11 00:00 :00 metFORMIN HCl 500 MG Tablet 1 180 Tablet 1 28513451 259 Taking 02/11 00:00 :00 Mupirocin 2 % Ointment 03/19/2024 00:00:00 1 30 Gram 1 0227586 1 042 P Taking 02/11 00:00 :00 Omeprazole 20 MG Capsule Delayed Release 1 90 Capsule 1 44690855 010 Taking 02/11 00:00 :00 OSTEO-BIFLE X 1 OTC Taking 02/11 00:00 :00 Pataday 0.2 % Solution 12/12/2019 00:00:00 1 1 Bottle 050841 15 001 P Taking 02/11 00:00 :00 PROBIOTICS 1 T aking 02/11 00:00 :00 Promethazin e-DM 6.25-15 MG/5ML Syrup 02/11/2025 00:00:00 1 240 mL 1 2794841 2 416 P Start 02/11 00:00 :00 Sertraline HCl 50 MG Tablet 1 90 Tablet 1 009 55432 561 Taking 02/11 00:00 :00 Sulindac 200 MG Tablet 1 180 1 4143579 6 001 P Taking 02/11 00:00 :00 Zithromax Z-Ryan 250 MG Tablet 02/11/2025 00:00:00 1 6 0 7128213 6 075 P Start
--- OUTSIDE RECORDS SUMMARY | 2025-03-04 14:08 | XMS_ITS | Patient Health Record ---
[facility] Organization [facility] Address [address] [facility] [address] [place] [id number] Care Team Providers Care Economic Development Director Name Role Phone Jaron Leon Primary Care Provider Ashok Greene Unavailable [phone] Ferny Santana Unavailable [phone] Allergies Allergen (clinical drug ingredient) Drug/Non Drug [...] - 38 plat 164 100 - 400 P-Microalbumin/Creatinine, R andom Urine Sample Reviewed date:10/03/2024 09:44:59 AM Interpretation:Normal Performing Lab: Notes/Report: Test performed by [facility] [address] [place] [address] , [address], [place] [address] Zeb Clemens MD, Bucket [place]er CLIA: [id number] Albumin/Creatinine Ratio, Urine 5 0-30 ug/m g Microalbumin, Urine, Random 1.3 Creatinine, Urine 264.9 P-PSA Reviewed date:10/03/2024 09:44:59 AM Interpretation:Normal Performing Lab: Notes/Report: Test performed by [facility] [address] [place] [address] Neha Lee, [place] [address] Zeb Clemens MD, Bucket Hooker CLIA: [id number] PSA 1.13 <4.00 ng/mL Please note this is an ultrasensitive PSA assay with a lower limit of detection of 0.014 ng/mL. This test is performed by the [facility] ECLIA methodology. Values obtained with different assay methods or kits cannot be directly compared. P-Comprehensive Metabolic Pa carmel (CMP) Reviewed date:10/03/2024 09:44:59 AM Interpretation:gluc 116, a1c 6.0 addressed in OV Performing Lab: Notes/Report: Test performed by [facility] [address] [place] [address] Neha Lee, [place] [address] Zeb Clemens MD, [place]er CLIA: [id number] Sodium 139 135-145 mmol/L Potassium 4.5 3.5-5.3 [...] 0.5 <0.2-1.2 mg/dL A/G Ratio 2.3 1.1-2.5 Glycohemoglobin A1c (in hous e) Reviewed date:09/24/2024 12:08:29 PM Interpretation: Performing Lab: Notes/Report: glycohemoglobin 6.0% 5 - 6.5 % CBC Venipuncture (in house) Reviewed date:09/24/2024 12:07:46 [...] - 38 platlet 177 100 - 400 Medications Medication SIG (Take, Route, Frequency, Duration) Notes Start Date End Date Status metFORMIN HCl 500 MG Take 1 tablet by mouth twice daily; Duration: 90 Active Promethazine-DM 6.25-15 MG/5ML 5 mL as needed Orally every 6 hrs 02/11/2025 Active Omeprazole 20 MG Take 1 capsule by mouth once daily; Duration: 90 Active PROBIOTICS P.O. DAILY Active Cartia XT 240 MG 1 cap(s) orally once a day 10/26/2017 Active OSTEO-BIFLEX 1 P.O. TWICE A DAY Active EQ Allergy Relief (Cetirizine) 10 MG Take 1 tablet by mouth once daily; Duration: 90 Active Fluticasone Propionate 50 MCG/ACT Use 1 spray(s) in each nostril once daily; Duration: 60 Active Zithromax Z-Ryan 250 MG as directed Orally daily; Duration: 5 days 02/11/2025 Active Sulindac 200 MG 1 tab(s) orally 2 times a day prn; Duration: 90 days Active Sertraline HCl 50 MG 1 tablet Orally Onc e a day; Duration: 90 days Active Mupirocin 2 % 1 application Externally Twice a day; Duration: 5 day(s) 03/19/2024 Active Pataday 0.2 % 1 gtt in each affected eye once a day; Duration: 10 day(s) 12/12/2019 Active CPAP SUPPLIES DIRECTED diagnosis code: G47.33 Sleep apnea in adult 09/02/2021 Active Immunizations Vaccine Route Administration Date Status Comme nts COVID 19 Moderna Unknown 12/24/2020 Administered COVID 19 Moderna Unknown 01/21/2021 Administered COVID 19 Moderna Unknown 09/09/2021 Administered DT, 7 YEARS OR OLDER Unknown 01/24/2002 Administered Flublok IM Intramuscular 09/01/2018 Administered Fluzone High Dose (65yr and older) IM Intramuscular 06/21/2019 Administered Fluzone High Dose (65yr and older) IM Intramuscular 07/10/2020 Administered Fluzone High Dose (65yr and older) IM Intramuscular 07/14/2023 Administered Fluzone High Dose (65yr and older) IM Intramuscular 10/17/2024 Administered Fluzone PF Quad (6-35 months) Unknown 08/04/2021 Administered Fluzone Quad (6months&older) IM Intramuscular 07/14/2017 Administered Prevnar (PCV13) IM Intramuscular 12/25/2018 Administered Shingrix Unknown 09/17/2020 Administered Shingrix Unknown 11/19/2020 Administered Tetanus Tdap-Adacel (over 7yrs) IM Intramuscular 12/25/2018 Administered xFluzone (6mos and older)-trivalent IM Intramuscular 07/03/2013 Administered Problems Problem Type SNOMED Code ICD Code Onset Dates Problem Status W/U Status Risk Notes Problem Benign prostatic hypertrophy (280153446) Benign prostatic hypertrophy NOS (600.00) Active confirmed Problem Type II diabetes mellitus without complication (441384312) Type 2 diabetes mellitus without complications (E11.9) Active confirmed Problem Hyperuricemia (28211089) Hyperuricemia (E79.0) Active confirmed Problem Sciatica (56708606) Lumbago with sciatica, right side (M54.41) Active confirmed Problem Chronic pain (28966520) Other chronic pain (G89.29) Active confirmed Problem Sciatica (51413381) Lumbago with sciatica, left side (M54.42) Active confirmed Problem Chronic pain (99764224) Other chronic pain (G89.29) Active confirmed Problem Type II diabetes mellitus without complication (086297941) Type 2 diabetes mellitus without complication (E11.9) Active confirmed Problem Obstructive sleep apnea syndrome (65450492) Sleep apnea in adult (G47.33) Active confirmed Problem Hyperlipidaemia (70175858) Hyperlipidemia, unspecified hyperlipidemia type (E78.5) Active confirmed Problem Shoulder joint pain (262852187) Acute pain of right shoulder (M25.511) Active confirmed Problem Reactive depression (26734284) Reactive depression (F32.9) Active confirmed Problem Allergic rhinitis caused by pollen (18315256) Seasonal allergic rhinitis due to pollen (J30.1) Active confirmed Problem Sciatica (62993889) Acute right- sided low back pain with right-sided sciatica (M54.41) Active confirmed Problem Sciatica (46880086) Acute left-s ided low back pain with left-sided sciatica (M54.42) Active confirmed Problem Cardiac dysrhythmia (743494289) Cardiac dysrhythmia, unspecified (I49.9) Active confirmed Problem Pure hypercholesterolemia (799683956) Pure hypercholesterolemia (E78.00) Active confirmed Problem Chronic idiopathic constipation (57124269) Chronic idiopathic constipation (K59.04) Active confirmed Problem Benign prostatic hypertrophy without outflow obstruction (793617480) Benign prostatic hyperplasia without lower urinary tract symptoms (N40.0) Active confirmed Problem Ventricular prematur e complex (disorder) (052665307) Ventricular ectopy (I49.3) Active confirmed Problem Bicipital tenosynovitis (25545604) Biceps tendinitis of right upper extremity (M75.21) Active confirmed Problem Paresthesia of finge r (870289700) Paresthesia of finger (R20.2) Active confirmed Problem Chest pain (51771776) Xyphoidalgia (R07.89) Acti ve confirmed Problem Low back pain (124811733) Low back pain, unspecified (M54.50) Active confirmed Vital Signs Heart Rate 102 /min 02/11/2025 Blood pressure diastolic 78 mm Hg 02/11/2025 Height 69.25 in 02/11/2025 Blood pressure systolic 122 mm Hg 02/11/2025 Weight 200.8 lbs 02/11/2025 BMI 29.44 kg/m2 02/11/2025 Encounters Encounter Location Date Provider Diagnosis [facility] [address] [place] [id number] 03/19/2024 Ashok Greene Biceps tendinitis of right upper extremity M75.21 and Cellulitis of face L03.211 [facility] [address] [place] [id number] 09/24/2024 Ashok Greene Type 2 diabetes taye itus without complication E11.9 ; Biceps tendinitis of right upper extremity M75.21 and Benign prostatic hyperplasia without lower urinary tract symptoms N40.0 [facility] [address] [place] [id number] 10/17/2024 Ferny Paton Encounter for immunization Z23 [facility] [address] [facility] [address] [place] [id number] 02/11/2025 Ferny Paton Acute URI J06.9 ; Hyperlipidemia, unspecified hyperlipidemia type E78.5 and BMI 29.0-29.9,adult Z68.29 [facility] [address] [place], [place] [id number] 03/12/2024 Ferny Paton [facility] [address] [facility] [address] [place], [place] [id number] 10/04/2024 R Ilir Mattat [facility] [address] [facility] [address] [place] [id number] 02/14/2025 Jaron Leon Assessments Encounter Date Diagnosis (ICD Code) Assessment Notes Treatment Notes Treatment Clinical Notes Section Notes 03/19/2024 Cellulitis of face (ICD-10 - L03.211) 03/19/2024 Biceps tendinitis of right upper extremity (ICD-10 - M75.21) 09/24/2024 Type 2 diabetes mellitus without complication (ICD-10 - E11.9) 09/24/2024 Biceps tendinitis of right upper extremity (ICD-10 - M75.21) 10/17/2024 Encounter for immunization (ICD-10 - Z23) 02/11/2025 Acute URI (ICD-10 - J06.9) 02/11/2025 Hyperlipidemia, unspecified hyperlipidemia type (ICD-10 - E78.5) 02/11/2025 BMI 29.0-29.9,adult (ICD-10 - Z68.29) 09/24/2024 Benign prostatic hyperplasia without lower urinary tract symptoms (ICD-10 - N40.0) Plan Of Treatment Next Appt Details Provider Name:Ashok Gonzalez er, 03/25/2025 10:30:00 AM, [address] [facility], [address], [place], [place], [id number], Insurance Providers Payer Name Payer Address Payer Phone Subscriber Number Group Number Insured Name Patient Relationship to Insured Coverage Start Date Coverage End Date MEDICARE PART B [address] [address] [place] [address] [id number] LAISHA COTE Self - patient is the insured [employer] [address] [place], [place] [address] [phone] [id number] LAISHA COTE Self - patient is the insured Medications Administered Medication Instructions Date of Administration Dosage Notes Dexamethasone 10/14/2008 1 mL Dexamethasone 07/18/2009 1 mL Morphine 10/06/2016 3 mg phenergan 25 mg/ml 10/06/2016 12.5 mg Medical (General) History Medical History History ICD Code low white blood cell count Hyperuricemia Allergic Rhinitis Esophageal Reflux Holter 02/16/2017 PVC's and run of VT Surgical History Surgery Date(Month/Year) Nose-Deviated Septum 2004 Tonsillectomy, uvula, soft palate 7 LT Knee Repair 01/2014 Heart Cath - [place] 07/2017 Colonoscopy, Dr. Almanza 01/2019 Dr. Moises Maurer 09/29 Hospitalization History Reason Date(Month/Year) [facility] ER/Stay - heart palpitations 08/02-0 01/2017 Ankle Fracture 1980
== END 2025-03-04 23:59 | disposition home or self-care (01) ==
LOC: RAD 14:05
PROVIDERS: PCP Family Medicine; Visit Provider Orthopaedic Surgery
DX: M99.73 Connective tissue and disc stenosis of intervertebral foramina of lumbar region (principal)
CPT/HCPCS: 72131

== ENCOUNTER 2025-03-08 16:57 | Outpatient (CLI) | payer MEDICARE, OTHER, SELFPAY ==
--- OUTSIDE RECORDS SUMMARY | 2024-09-24 06:30 | XMS_ITS ---
Author Organization [facility] Address [address] [place] [id number] Care Team Providers Care Decoration Checker Name Role Phone Jaron Leon Primary Care Provider Ashok Greene [phone] Allergies Allergen (clinical drug ingredient) Drug/Non Drug [...] OV Performing Lab: Notes/Report: Test performed by [facility], [facility] [address] [place] [address] , [address], [place] [address] Zeb Clemens MD, Auto Body Worker CLIA: [id number] Sodium 139 135-145 mmol/L Potassium 4.5 3.5-5.3 [...] Interpretation:Normal Performing Lab: Notes/Report: Test performed by [facility] [address] [place] [address] , [address], [place] [address] Zeb Clemens MD, Auto Body Worker CLIA: [id number] PSA 1.13 <4.00 ng/mL Please note this is an ultrasensitive PSA assay with a lower limit of detection of 0.014 ng/mL. This test is performed by the [employer] ECLIA methodology. Values obtained with different assay methods or kits cannot be directly compared. P-Microalbumin/Creatinine, R andom Urine Sample Reviewed date:10/03/2024 09:44:59 AM Interpretation:Normal Performing Lab: Notes/Report: Test performed by [facility] [address] [place] [address] , [address], [place] [address] Zeb Clemens MD, Auto Body Worker CLIA: [id number] Albumin/Creatinine Ratio, Urine 5 0-30 ug/m g [...] once a day 10/26/2017 Active Vital Signs Weight 197.0 lbs 09/24/2024 Blood pressure systolic 112 mm Hg 09/24/19 25 Blood pressure diastolic 74 mm Hg 025 Heart Rate 69 /min 09/24/2024 Height 69.25 in 09/24/2024 BMI 28.88 kg/m2 09/24/2024 Encounters Encounter Location Date Provider Diagnosis [facility] [address] [place] [id number] 09/24/2024 Ashok Greene Type 2 diabetes mellitus [...] Gonzalez er, 03/25/2025 10:30:00 AM, [address] [facility] [address], [address], [place], [place], [id number], Progress Notes * LAISHA COTEDOB: 4 (69 yo M)Acc No.[id number]:09/24/2024 Progress Notes Patient: LAISHA CAMPBELL Provider: Ashok Greene M.D. :1955 A ge:68 Y S ex:Male Date:09/24/2024 Address:[address] [place] [address], [id number] Pcp:Jaron Leon Subjective: * Chief Complaints: * [...] 24- fx to ankle (kept overnight) , [facility] ER/Stay - heart palpitations 08/02-08/03/2017. * Family [...] p latlet 177 100 - 400 * Dilcai King 09/24/2024 10: 53:18 AM > , [...] Codes: 8 5025 CBC WITH AUTO DIFF, 17060 GLYCATED HEMOGLOBIN TEST, Modifiers: QW , G2211 Complex e/m visit add on, 3044F HG A1C LEVEL LT 7.0% * Follow Up: 6 Months * Images: Billing Information: * Visit Code: 37251 Office Visit, Est Pt., Level 4. * Procedure Codes: 25455 CBC WITH AUTO DIFF. 43141 GLYCATED HEMOGLOBIN TEST. Modifiers: QW G2211 Complex e/m visit add on. 3044F HG A1C LEVEL LT 7.0%. * Electronic signature of Ashok Greene MD on 03/08/2025 at 05:03 PM EDT Sign off status: Pending * Provider: Ashok Greene M.D. Date: 0 09/24/2024 Generated for Printi ng/Faxing/eTransmitting on: 0 03/08/2025 05:03 PM EDT History and Physical Notes * [...]
--- OUTSIDE RECORDS SUMMARY | 2024-10-17 11:00 | XMS_ITS ---
Author Organization [facility] Address [facility] [facility] [address] [place] [phone] Care Team Providers Care Cnc Lathe Machine Operator Name Role Phone Jaron Leon Primary Care Provider [phone] Ferny Santana Unavailable [phone] REASON FOR VISIT flu shot only Immunizations Vaccine Route Administration Date Status Comme nts Fluzone High Dose (65yr and older) IM Intramuscular 10/17/2024 Administered Encounters Encounter Location Date Provider Diagnosis [facility] [address] [facility] [address] [place] [phone] 10/17/2024 Ferny Santana Encounter for immunization Z23 Assessments Encounter Date Diagnosis (ICD Code) Assessment Notes Treatment Notes Treatment Clinical Notes Section Notes 10/17/2024 Encounter for immunization (ICD-10 - Z23) Plan Of Treatment Next Appt Details Provider Name:Ashok Diogenes Lisa er, 03/25/2025 10:30:00 AM, [address] [facility], [address], [place], [place], [id number], Progress Notes * LAISHA COTEDOB: (69 yo M)Acc No.[id number]:10/17/2024 Patient: LAISHA CAMPBELL Provider: Roxana Santana M.D. :1955 A ge:68 Y S ex:Male Date:10/17/2024 Address:[address] [place] [address] [address], [place], [id number] Pcp:Jaron Leon Subjective: * Chief Complaints: * [...] Electronic signature of Lyndsay Santana MD on 03/08/2025 at 05:03 PM EDT Sign off status: Pending * Provider: Roxana Santana M.D. Date: 10/17/2024 Generated for Pura villalobos/Jamal/Anna on: 0 03/08/2025 05:03 PM EDT
--- OUTSIDE RECORDS SUMMARY | 2025-02-11 06:45 | XMS_ITS ---
[facility] [address] [facility] [address] [place] [id number] Care Team Providers Care Grain Combine Driver Name Role Phone Jaron Leon Primary Care Provider [phone] Ferny Santana Unavailable [phone] Allergies Allergen (clinical drug ingredient) Drug/Non Drug [...] Encounter Location Date Provider Diagnosis [facility] [address] [id number] 02/11/2025 Ferny Santana Acute URI J06.9 ; [...] Lisa er, 03/25/2025 10:30:00 AM, [address] [facility] [address], [place], [place], [id number], Progress Notes * LAISHA COTEDOB: 4 (69 yo M)Acc No.[id number]:02/11/2025 Progress Notes Patient: LAISHA CAMPBELL Provider: Roxana Santana M.D. :1955 A ge:69 Y S ex:Male Date:02/11/2025 Address:[address] [place] [address], [facility] Pcp:Jaron Leon Subjective: * Chief Complaints: * [...] stic Procedure: A nkle Fracture 1979, [facility] ER/Stay - heart palpitations 08/02-01/2017. * [...] hyperlipidemia type - E78.5 3 . B ME 29.0-29.9,adult - Z68.29 Plan: * Treatment: Value [...] G 2211 Complex e/[place], [address] CAPILLARY BLOOD DRAW, 81312 CBC WITH AUTO DIFF, G8420 BMI<30 AND >=22 CALC & DOCU, 1036F TOBACCO NON-USER, G8783 BP SCR PRFRM RCMDD DEFIND SCR INTVL, G8752 MOST RECENT SYSTOLIC BP < 140MM HG, G8754 MOST RECENT DIASTOLIC BP < 90MM HG * Follow Up: p rn * Images: Billing Information: * Visit Code: 14724 Office Visit, Est Pt., Level 3. * Procedure Codes: G2211 Complex e/[place]. [address] CAPILLARY BLOOD DRAW. 71661 CBC WITH AUTO DIFF. G8420 BMI<30 AND [...] 0 02/11/2025 Generated for Pura villalobos/Jamal/eTransmitting on: 03/08/2025 05:03 PM EDT History and Physical [...]
--- NOTE | 2025-03-08 | MR_ITS ---
PROCEDURE INFORMATION: Exam: MR Lumbar Spine Without Contrast Exam date and time: 03/08/2025 5:04 PM Age: 69 years old Clinical indication: Low back pain; Additional info: Lower back pain TECHNIQUE: Imaging protocol: Magnetic resonance imaging of the lumbar spine without contrast. COMPARISON: CT LUMBAR SPINE WO CON 03/04/2025 2:07 PM FINDINGS: Bones/joints: Unremarkable. No fracture. Normal alignment. Spinal cord: Visualized cord, conus medullaris and cauda equina are unremarkable without compression. L1-L2: Slight disc bulge without spinal stenosis. L2-L3: Slight disc bulge without spinal stenosis. L3-L4: Disc bulge combining with facet and ligamentum flavum hypertrophy to produce mild spinal stenosis and [id number] left subarticular recess stenosis. L4-L5: Disc bulge combining with facet and ligamentum flavum hypertrophy to produce minimal spinal stenosis and mild right subarticular recess stenosis. L5-S1: No significant disc bulge or herniation. No severe spinal canal stenosis. No significant neural foraminal narrowing. Soft tissues: Unremarkable. IMPRESSION: No acute findings. Multilevel degenerative changes are mild and detailed above. No evidence of significant spinal stenosis.
--- OUTSIDE RECORDS SUMMARY | 2025-03-08 17:03 | XMS_ITS | Patient Health Record ---
[facility] Address [address] [place] [id number] Care Team Providers Care Extension Clerk Name Role Phone Jaron Leon Primary Care Provider Ashok Greene Unavailable [phone] Ferny Santana Unavailable [phone] Allergies Allergen (clinical drug ingredient) Drug/Non Drug [...] 6.0 addressed in OV Performing Lab: Notes/Report: CLIA: [id number] Zeb Clemens MD, Medical Science Liaison [address] [place] [address] , [address], [place] [address] Test performed by [facility] Sodium 139 135-145 mmol/L Potassium 4.5 3.5-5.3 [...] Interpretation:Normal Performing Lab: Notes/Report: Test performed by [facility] [address] [place] [address] , [address], [place] [address] Zeb Clemens MD, Medical Science Liaison CLIA: [id number] PSA 1.13 <4.00 ng/mL Please note this is an ultrasensitive PSA assay with a lower limit of detection of 0.014 ng/mL. This test is performed by the [facility] ECLIA methodology. Values obtained with different assay methods or kits cannot be directly compared. P-Microalbumin/Creatinine, R andom Urine Sample Reviewed date:10/03/2024 09:44:59 AM Interpretation:Normal Performing Lab: Notes/Report: Test performed by [facility] [address] [place] [address] , [address], [place] [address] Zeb Clemens MD, Medical Science Liaison CLIA: [id number] Albumin/Creatinine Ratio, Urine 5 0-30 ug/m g Microalbumin, Urine, Random 1.3 Creatinine, Urine 264.9 CBC Fingerstick (in house) Reviewed date:02/12/2025 10:28:39 [...] - 38 plat 164 100 - 400 Medications Medication SIG (Take, Route, Frequency, Duration) Notes Start Date End Date Status Sertraline HCl 50 MG 1 tablet Orally Onc e a day; Duration: 90 days Active metFORMIN HCl 500 MG Take 1 [...] a day prn; Duration: 90 days Active Mupirocin 2 % [...] Status Risk Notes Problem Benign prostatic hypertrophy (886053710) Benign prostatic hypertrophy NOS (600.00) Active confirmed Problem Type II diabetes mellitus without complication (589950895) Type 2 diabetes mellitus without complications (E11.9) Active confirmed Problem Hyperuricemia (38306970) Hyperuricemia (E79.0) Active confirmed Problem Sciatica (77547489) Lumbago with sciatica, right side (M54.41) Active confirmed Problem Chronic pain (18329476) Other chronic pain (G89.29) Active confirmed Problem Sciatica (88964565) Lumbago with sciatica, left side (M54.42) Active confirmed Problem Chronic pain (55508831) Other chronic pain (G89.29) Active confirmed Problem Type II diabetes mellitus without complication (457024081) Type 2 diabetes mellitus without complication (E11.9) Active confirmed Problem Obstructive sleep apnea syndrome (73800903) Sleep apnea in adult (G47.33) Active confirmed Problem Hyperlipidaemia (94476706) Hyperlipidemia, unspecified hyperlipidemia type (E78.5) Active confirmed Problem Shoulder joint pain (449955108) Acute pain of right shoulder (M25.511) Active confirmed Problem Reactive depression (44987402) Reactive depression (F32.9) Active confirmed Problem Allergic rhinitis caused by pollen (59503664) Seasonal allergic rhinitis due to pollen (J30.1) Active confirmed Problem Sciatica (78103834) Acute right- sided low back pain with right-sided sciatica (M54.41) Active confirmed Problem Sciatica (97015913) Acute left-s ided low back pain with left-sided sciatica (M54.42) Active confirmed Problem Cardiac dysrhythmia (486729920) Cardiac dysrhythmia, unspecified (I49.9) Active confirmed Problem Pure hypercholesterolemia (628986391) Pure hypercholesterolemia (E78.00) Active confirmed Problem Chronic idiopathic constipation (88219562) Chronic idiopathic constipation (K59.04) Active confirmed Problem Benign prostatic hypertrophy without outflow obstruction (604182452) Benign prostatic hyperplasia without lower urinary tract symptoms (N40.0) Active confirmed Problem Ventricular prematur e complex (disorder) (181653168) Ventricular ectopy (I49.3) Active confirmed Problem Bicipital tenosynovitis (61456524) Biceps tendinitis of right upper extremity (M75.21) Active confirmed Problem Paresthesia of finge r (106209920) Paresthesia of finger (R20.2) Active confirmed Problem Chest pain (93380864) Xyphoidalgia (R07.89) Acti ve confirmed Problem Low back pain (340558566) Low back pain, unspecified (M54.50) Active confirmed Vital Signs Heart Rate 102 /min 02/11/2025 Blood pressure diastolic 78 mm Hg 02/11/2025 Height 69.25 in 02/11/2025 Blood pressure systolic 122 mm Hg 02/11/2025 Weight 200.8 lbs 02/11/2025 BMI 29.44 kg/m2 02/11/2025 Encounters Encounter Location Date Provider Diagnosis [facility] [address] [place] [id number] 03/19/2024 Ashok Greene Biceps tendinitis of right upper extremity M75.21 and Cellulitis of face L03.211 [facility] [address] [place] [id number] 09/24/2024 Ashok Greene Type 2 diabetes taye itus without complication E11.9 ; Biceps tendinitis of right upper extremity M75.21 and Benign prostatic hyperplasia without lower urinary tract symptoms N40.0 [facility] [address] [place] [id number] 10/17/2024 Ferny Keller Encounter for immunization Z23 [facility] [address] [facility] [address] [place] [id number] 02/11/2025 Ferny Keller Acute URI J06.9 ; Hyperlipidemia, unspecified hyperlipidemia type E78.5 and BMI 29.0-29.9,adult Z68.29 [facility] [address] [place], [place] [id number] 03/12/2024 Ferny Keller [facility] [address] [facility] [address] [place], [place] [id number] 10/04/2024 R Ilir Mattat [facility] [address] [facility] [address] [place] [id number] 02/14/2025 Jaron Leon Assessments Encounter Date Diagnosis [...] 03/25/2025 10:30:00 AM, [address] [facility], [address], [place], [place], [id number], Insurance Providers Payer Name Payer Address Payer Phone Subscriber Number Group Number Insured Name Patient Relationship to Insured Coverage Start Date Coverage End Date MEDICARE PART B [address] [address] [place] [address] [id number] LAISHA COTE Self - patient is the insured [employer] [id number] [place], [place] [id number] LAISHA COTE Self - patient is the [...] Moises Maurer 09/29 Hospitalization History Reason Date(Month/Year) [facility] ER/Stay - heart palpitations 08/02-0 01/2017 Ankle Fracture 1980
== END 2025-03-08 23:59 | disposition home or self-care (01) ==
LOC: RAD 17:00
PROVIDERS: PCP Family Medicine; Visit Provider Orthopaedic Surgery
DX: M47.816 Spondylosis without myelopathy or radiculopathy, lumbar region (principal)
CPT/HCPCS: 72148

== ENCOUNTER 2025-05-20 14:24 | Outpatient (CLI) | payer MEDICARE, OTHER, SELFPAY ==
--- OUTSIDE RECORDS SUMMARY | 2024-09-24 06:30 | XMS_ITS ---
Author Organization [facility] Address [address] [place] [id number] Care Team Providers Care Advertising Sales Consultant Name Role Phone Jaron Leon Primary Care Provider [phone] Ashok Greene [phone] Allergies Allergen (clinical drug ingredient) Drug/Non Drug [...] OV Performing Lab: Notes/Report: Test performed by [facility] [employer] [address] [place] [address] , [address], [place] [address] Zeb Clemens MD, Building Construction Foreman CLIA: [id number] Sodium 139 135-145 mmol/L Potassium 4.5 3.5-5.3 [...] Interpretation:Normal Performing Lab: Notes/Report: Test performed by [facility] [address] [place] [address] , [address], [place] [address] Zeb Clemens MD, Building Construction Foreman CLIA: [id number] PSA 1.13 <4.00 ng/mL Please note this is an ultrasensitive PSA assay with a lower limit of detection of 0.014 ng/mL. This test is performed by the Kalina ECLIA methodology. Values obtained with different assay methods or kits cannot be directly compared. P-Microalbumin/Creatinine, R andom Urine Sample Reviewed date:10/03/2024 09:44:59 AM Interpretation:Normal Performing Lab: Notes/Report: Test performed by [facility] [address] [place] [address] , [address], [place] [address] Zeb Clemens MD, Building Construction Foreman CLIA: [id number] Albumin/Creatinine Ratio, Urine 5 0-30 ug/m g [...] Encounter Location Date Provider Diagnosis [facility] [address] [place] [id number] 09/24/2024 Ashok Greene Type 2 diabetes mellitus [...] Details Follow Up: 6 Months, Reason: Provider Name:Ferny Escobedo ry, 05/20/2025 02:00:00 PM, [address] [facility] 36 [facility], [address], [place], [id number], Provider Name:Ashok Gonzalez er, 05/23/2025 03:00:00 PM, [address] [facility] 36 [facility], [address], [place], [place], [id number], Progress Notes * LAISHA COTEDOB: (69 yo M)Acc No.[id number]:09/24/2024 Progress Notes Patient: LAISHA CAMPBELL Provider: Ashok Greene M.D. :1955 A ge:68 Y S ex:Male Date:09/24/2024 Address:[address] [facility] [address], [facility], [place] Pcp:Jaron Leon Subjective: * Chief Complaints: * [...] 26- fx to ankle (kept overnight) , [facility] ER/Stay - heart palpitations 08/02-08/03/2017. * [...] Codes: 8 5025 CBC WITH AUTO DIFF, 00226 GLYCATED HEMOGLOBIN TEST, Modifiers: QW , G2211 Complex e/m visit add on, 3044F HG A1C LEVEL LT 7.0% * Follow Up: 6 Months * Images: Billing Information: * Visit Code: 33989 Office Visit, Est Pt., Level 4. * Procedure Codes: 87828 CBC WITH AUTO DIFF. 09037 GLYCATED HEMOGLOBIN TEST. Modifiers: QW G2211 Complex e/m visit add on. 3044F HG A1C LEVEL LT 7.0%. * Electronic signature of Ashok [place] MD on 05/20/2025 at 02:29 PM EDT Sign off status: Pending * Provider: Ashok Greene M.D. Date: 0 09/24/2024 Generated for Pura villalobos/Jamal/eTransmitting on: 0 05/20/2025 02:29 PM EDT History and Physical Notes * [...]
--- OUTSIDE RECORDS SUMMARY | 2024-10-17 11:00 | XMS_ITS ---
Author Organization [facility] Address [address] [facility] [address] [place] [phone] Care Team Providers Care Feed Mill Tender Name Role Phone Jaron Leon Primary Care Provider [phone] Ferny Santana [phone] REASON FOR VISIT flu shot only Immunizations Vaccine Route Administration Date Status Comme nts Fluzone High Dose (65yr and older) IM Intramuscular 10/17/2024 Administered Encounters Encounter Location Date Provider Diagnosis [facility] [address] [place], [place] [id number] 10/17/2024 Ferny Santana Encounter for immunization Z23 Assessments Encounter Date Diagnosis (ICD Code) Assessment Notes Treatment Notes Treatment Clinical Notes Section Notes 10/17/2024 Encounter for immunization (ICD-10 - Z23) Plan Of Treatment Next Appt Details Provider Name:Ferny Escobedo ry, 05/20/2025 02:00:00 PM, [address], [address], [place], [place], [phone], Provider Name:Ashok Gonzalez er, 05/23/2025 03:00:00 PM, [address], [address], [place], [place], [phone], Progress Notes * LAISHA COTEDOB: (69 yo M)Acc No.[id number]:10/17/2024 Patient: LAISHA CAMPBELL Provider: Roxana Santana M.D. :1955 A ge:68 Y S ex:Male Date:10/17/2024 Address:[address] [facility] [address], [place], [id number] Pcp:Jaron Leon Subjective: * Chief Complaints: * 1 . Flu shot only. * Medical History: Objective: * Vitals: Assessment: * Assessment: 1. E ncounter for immunization - Z23 (Primary) Plan: * Treatment: * Immunizations: Fluzone High Dose (65yr and older) : 0.7 mL (Route: Intramuscular) given by KATHIE Hernandez on Left Arm (Encounter for immunization) * Images: Billing Information: * Visit Code: * Procedure Codes: * Electronic signature of Lyndsay Santana MD on 05/20/2025 at 02:29 PM EDT Sign off status: Pending * Provider: Roxana Santana M.D. Date: 0 10/17/2024 Generated for Pura villalobos/Jamal/Rosieransmitting on: 0 05/20/2025 02:29 PM EDT
--- OUTSIDE RECORDS SUMMARY | 2025-02-11 06:45 | XMS_ITS ---
Author Organization [facility] Address [address] [facility] [address] [place] [id number] Care Team Providers Care Leather Skinner Name Role Phone Jaron Leon Primary Care Provider Ferny Santana Unavailable [phone] Allergies Allergen (clinical drug ingredient) Drug/Non Drug [...] once daily; Duration: 90 Active Vital Signs Blood pressure systolic 122 mm Hg 02/12/20 25 Blood pressure diastolic 78 mm Hg 025 Heart Rate 102 /min 02/11/2025 Height 69.25 in 02/11/2025 Weight 200.8 lbs 02/11/2025 BMI 29.44 kg/m2 02/11/2025 Encounters Encounter Location Date Provider Diagnosis [facility] [address] [phone] 02/11/2025 Ferny Santana Acute URI J06.9 ; [...] Appt Details Follow Up: prn, Reason: Provider Name:Ferny Escobedo ry, 05/20/2025 02:00:00 PM, [address] [facility], [address], [place], [place], [id number], Provider Name:Ashok Shetty [place], 05/23/2025 03:00:00 PM, [address] [facility] 36 [facility], [address], [place], [place], [phone], Progress Notes * LAISHA COTEDOB: (69 yo M)Acc No.[id number]:02/11/2025 Progress Notes Patient: LAISHA CAMPBELL Provider: Roxana Santana M.D. :1955 A ge:69 Y S ex:Male Date:02/11/2025 Address:[address] [place] [address], [facility] Pcp:Jaron [place] Subjective: * Chief Complaints: * [...] Diagno stic Procedure: A nkle Fracture 1979, [facility] ER/Stay - heart palpitations 08/02-01/2017. * Family [...] hyperlipidemia type - E78.5 3 . B LA 29.0-29.9,adult - Z68.29 Plan: * Treatment: Value [...] G 2211 Complex e/[place], [address] CAPILLARY BLOOD DRAW, 82893 CBC WITH AUTO DIFF, G8420 BMI<30 AND >=22 CALC & DOCU, 1036F TOBACCO NON-USER, G8783 BP SCR PRFRM RCMDD DEFIND SCR INTVL, G8752 MOST RECENT SYSTOLIC BP < 140MM HG, G8754 MOST RECENT DIASTOLIC BP < 90MM HG * Follow Up: p rn * Images: Billing Information: * Visit Code: 94133 Office Visit, Est Pt., Level 3. * Procedure Codes: G2211 Complex e/[place]. [address] CAPILLARY BLOOD DRAW. 80109 CBC WITH AUTO DIFF. G8420 BMI<30 AND >=22 CALC & DOCU. 1036F TOBACCO NON-USER. G8783 BP SCR PRFRM RCMDD DEFIND SCR INTVL. G8752 MOST RECENT SYSTOLIC BP < 140MM HG. G8754 MOST RECENT DIASTOLIC BP < 90MM HG. * Electronic signature of Lyndsay Santana MD on 05/20/2025 at 02:28 PM EDT Sign off status: Pending * Provider: Roxana Santana M.D. Date: 0 02/11/2025 Generated for Pura villalobos/Jamal/Codyitting on: 0 05/20/2025 02:28 PM EDT History and Physical Notes * [...]
--- OUTSIDE RECORDS SUMMARY | 2025-03-28 11:45 | XMS_ITS ---
Author Organization [facility] Address [address] [place] [id number] Care Team Providers Care Lean Sensei Name Role Phone Jaron Leon Primary Care Provider Ashok Greene [phone] Allergies Allergen (clinical drug ingredient) Drug/Non Drug [...] date:04/02/2025 11:16:21 AM Interpretation:Normal Performing Lab: Notes/Report: Test performed by [employer] [address] [place] [address] , [address], [place] [address] Zeb Clemens MD, Kiln Burner Helper CLIA: [id number] Sodium 141 135-145 mmol/L Potassium 4.6 3.5-5.3 [...] Notes Problem Spinal stenosis of lumbosacral region ([id number]) Spinal stenosis of lumbosacral region (M48.07) Active confirmed Vital Signs Blood pressure systolic 122 mm Hg 03/28/20 25 Blood pressure diastolic 80 mm Hg 025 Heart Rate 83 /min 03/28/2025 Height 69.25 in 03/28/2025 Weight 204.6 lbs 03/28/2025 BMI 29.99 kg/m2 03/28/2025 Encounters Encounter Location Date Provider Diagnosis [facility] [address] [place] [address] [address] [place] [id number] 03/28/2025 Ashok Greene Type 2 diabetes mellitus [...] Details Follow Up: 2 Months, Reason: Provider Name:Ferny Escobedo ry, 05/20/2025 02:00:00 PM, [address] [place] [address], [address], [place], [id number], Provider Name:Ashok Gonzalez er, 05/23/2025 03:00:00 PM, [address] [place] [address], [facility] [address], [place], [id number], Progress Notes * LAISHA COTEDOB: 4 (69 yo M)Acc No.[id number]:03/28/2025 Progress Notes Patient: ANÍBAL CAMPBELLRY Provider: Ashok Greene M.D. :1955 A ge:69 Y S ex:Male Date:03/28/2025 Address:[address] [place], [place] [address], [facility] Pcp:R Ilir Carolyn Subjective: * Chief Complaints: * 1 . 6 month ckup. 2. Needs labs & diabetic eye exam. * HPI: C ardiology: The patient is here for a check up on Hyperlipidemia and Diabetes. Pt states he is doing good except for some low back pain since October. Pt states the pain is getting worse. Pt states he saw [facility] orthopedic and had an MRI and Ct [...] enies : Dizziness. D enies : Palpitations. * ROS: D ERMATOLOGY: no R jason. [...] LT Knee Repair 01/2014, Heart Cath - [facility] 07/2017, Colonoscopy, Dr. Almanza 01/2019, Bunion and Hammer toe, Dr. De Leon 10/12/2022. * Hospitalization/Major Diagno stic Procedure: A nkle Fracture 1979, [facility] ER/Stay - heart palpitations 08/02-01/2017. * [...] lumbosacral region - M48.07 4 . B [place] 29.0-29.9,adult - Z68.29 Plan: * Treatment: Value [...] G 2211 Complex e/[place], [address] GLYCATED HEMOGLOBIN TEST, Modifiers: QW , 3044F HG A1C LEVEL LT 7.0%, 1036F TOBACCO NON-USER, G8420 BMI<30 AND >=22 CALC & DOCU, G8783 BP SCR PRFRM RCMDD DEFIND SCR INTVL, G8752 MOST RECENT SYSTOLIC BP < 140MM HG, G8754 MOST RECENT DIASTOLIC BP < 90MM HG * Follow Up: 2 Months * Images: Billing Information: * Visit Code: 89087 Office Visit, Est Pt., Level 3. * Procedure Codes: G2211 Complex e/[place]. [address] GLYCATED HEMOGLOBIN TEST. Modifiers: QW 3044F HG [...] Greene M.D. Date: 0 03/28/2025 Generated for Printi ng/Faxing/eTransmitting on: 0 05/20/2025 02:29 PM EDT History [...]
--- NOTE | 2025-05-20 14:29 | XR_ITS ---
FINAL REPORT CLINICAL HISTORY: PAIN IN RT FOOT, great toe COMPARISON: 12/29/2023 FINDINGS: RIGHT FOOT 3 views of the right foot were obtained. There is no acute fracture or dislocation. There are postoperative changes of fusion of the first tarsometatarsal joint. Hardware is intact and appears unchanged from prior CT. There continues to be incomplete bony union across the first tarsometatarsal joint. Mild degenerative disease is seen, most pronounced at the 1st and 2nd MTP joints. 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 IMPRESSION: Postoperative and degenerative changes, similar to prior exam. Reviewed, Interpreted and Dictated by Luciana Tellez MD Transcribed by Deyanira Cain Authenticated and [facility]
--- OUTSIDE RECORDS SUMMARY | 2025-05-20 14:29 | XMS_ITS | Clinical Summary ---
Author Organization [facility] Address [address] [place] [address] Care Team Providers Care Stage Set Designer Name Role Phone Diogenes Greene MD Primary Care Provider [phone] Allergies Active Allergy Reactions Criticality Noted Date Comments Diphenhydramine 03/22/2017 Medications gabapentin (NEURONTIN) 300 MG capsule Take 300 mg by mouth Daily. 7 Active metFORMIN (GLUCOPHAGE) 500 MG tablet Take 500 mg by mouth 2 (Two) Times a Day With Meals. 7 Active omeprazole (priLOSEC) 20 MG capsule Take 20 mg by mouth Daily. 7 Active cetirizine (zyrTEC) 10 MG tablet Take 10 mg by mouth Daily. Active tamsulosin (FLOMAX) 0.4 MG capsule 24 hr capsule Take 1 capsule by mouth Every Night. Active ibuprofen (ADVIL) 200 MG tablet Take 800 mg by mouth Every 8 (Eight) Hours As Needed for Mild Pain (1-3). Active calcium polycarbophil (FIBERCON) 625 MG tablet Take 625 mg by mouth Daily. Active Glucosamine-Chondr oit-Vit C-Mn (GLUCOSAMINE 1500 COMPLEX PO) Take by mouth. Active Multiple Vitamins-Minerals (MULTI-VITAMIN GUMMIES PO) Take by mouth. Active Family History Medical History Relation Name Comments Cancer Father Stroke Mother Heart attack Paternal Grandfather Relation Name Status Comments Father Mother Paternal Grandfather Social History Tobacco Use Types Packs/Day Years Used Date Smoking Tobacco: Never Smokeless Tobacco: Never Alcohol Use Standard Drinks/Week Comments No 0 (1 standard drink = 0.6 oz pur e alcohol) Abuse Screen Answer Date Recorded Unsafe at Home or Work/School Not on file Feels Threatened by Someone? Not on file 06/2023 Does Anyone Keep You from Co ntacting Others or Doint Things Outside the Home? Not on file 06/08/2023 Physical Sign of Abuse Present Not on file 1 Housing Stability Answer Date Recorded Current Living Arrangements Not on file 05/29 Potentially Unsafe Housing Conditions Not on celine e 06/08/2023 Family and Community Support Answer Alvaro e Recorded Help with Day-to-Day Activities Not on file 06/08/2023 Lonely or Isolated Not on file 06/08/2023 Employment Answer Date Recorded Do you want help finding or keeping work or a naomy b? Not on file 06/08/2023 Disabilities Answer Date Recorded Concentrating, Remembering, or Making Decisions Difficulty Not on file 06/08/2023 Doing Errands Independently Difficulty Not on fi le 06/08/2023 Education Answer Date Recorded Help with school or training? Not on file Preferred Language Not on file 06/08/2023 Sex and Gender Information Value Date Recorded Sex Assigned at Not on file Legal Sex Male 9:35 AM EDT Gender Identity Not on file Sexual Orientation Not on file Last Filed Vital Signs Vital Sign Reading Time Taken Comments Blood Pressure 114/78 03/22/2017 1:54 PM EDT Pulse 72 03/22/2017 1:54 PM EDT Temperature - - Respiratory Rate - - Oxygen Saturation - - Inhaled Oxygen Concentration - - Weight 87.5 kg (193 lb) 03/22/2017 1:53 PM EDT Height 175.3 cm (5' 9 ) 03/22/2017 1:53 PM EDT Body Mass Index 28.5 03/22/2017 1:53 PM EDT Plan of Treatment Health Maintenance Due Date Last Done Comments COLOGUARD 1998 COLON CANCER SCREENING 5 YEA R SIGMOIDOSCOPY 1998 COLONOSCOPY 1998 COLORECTAL CANCER SCREENING 1998 CT COLONOGRAPHY 1998 FECAL OCCULT BLOOD TEST 1998 FIT Testing (1 year) 1998 ANNUAL PHYSICAL 03/22/2017 HEPATITIS C SCREENING 03/22/2017 AAA SCREEN ONCE 2018 Pneumococcal Vaccine 50+ (2 of 2 - PPSV23) 12/26/2019 12/25/2018 INFLUENZA VACCINE 03/29/2025 08/04/2021, , 06/21/2019, Additional history exists COVID-19 Vaccine (4 - 2024-2 6 season) 2025 09/09/2021, 01/21/2021, 12/24/2020 TDAP/TD VACCINES (3 - Td or Tdap) 12/25/2028 019, 01/24/2002 ZOSTER VACCINE Completed 11/19/2020, 09/17/2020 Insurance MEDICARE A & [place] [address] [place] [address] Care Teams Stage Set Designer Relationship Specialty Start Date End Date Diogenes Greene MD PCP - General Neurology 04/22/17
--- OUTSIDE RECORDS SUMMARY | 2025-05-20 14:29 | XMS_ITS | Encounter Summary ---
Author Organization [place] [address] Care Team Providers Care Sailing Master Name Role Phone Oneil Escalera MD Unavailable [phone] Niels Greene MD Primary Care Provider [phone] Encounter Details Date Type Department Care Team (Late st Contact Info) Description 10/26/2017 Orders Only [facility] [address] [address] Oneil Escalera MD [address] [place] [address] Social History Tobacco Use Types Packs/Day [...] Office Visit [facility] [address] [place] [address] Janet Monet APRN [address] [place] [address] documented as of this encounter Procedures Procedure Name Priority Date/Time Associated Diagnosis Comments EP LAB RECORDINGS Routine 10/26/2017 12:30 PM EST documented in this encounter Results * EP LAB RECORDINGS (10/26/2017 12:30 PM EST) 10/26/2017 12:3 0 PM EST Oneil Escalera MD CARDIAC CATH ORDERABLES Final Result Performing Organization Address City/State/RUST Co de Phone Number [facility] 1 [place] [address] documented in this encounter Visit Diagnoses Not on filedocumented in this encounter Care Teams Sailing Master Relationship Specialty Start Date End Date Niels Greene MD [facility] [place] [address] [place] [phone] PCP - General Family Medicine 08/12/17 Oneil Escalera MD [address] [place] [address] Consulting Physician Internal Medicine - Clinical Cardiac Electrophysiology 08/10/17 documented as of this encounter
--- OUTSIDE RECORDS SUMMARY | 2025-05-20 14:30 | XMS_ITS | Patient Health Record ---
Author Organization [facility] Address [address] [facility] [address] [place] [id number] Care Team Providers Care Boomswing Operator Name Role Phone Jaron Leon Primary Care Provider [phone] Ashok Greene Unavailable [phone] Ferny Santana Unavailable [phone] Allergies Allergen (clinical drug ingredient) Drug/Non Drug [...] - 38 plat 164 100 - 400 Glycohemoglobin A1c (in hous e) Reviewed date:03/29/2025 10:56:49 AM Interpretation:6.1% Performing Lab: Notes/Report: 6.1% glycohemoglobin 6.1% 5 - 6.5 % P-Comprehensive Metabolic Pa carmel (CMP) Reviewed date:04/02/2025 11:16:21 AM Interpretation:Normal Performing Lab: Notes/Report: Test performed by [facility], [facility] [address] [place] [address] Neha Lee C, [place] [address] Zeb Clemens MD, Napper Tender CLIA: [id number] Sodium 141 135-145 mmol/L Potassium 4.6 3.5-5.3 [...] 0.4 <0.2-1.2 mg/dL A/G Ratio 2.3 1.1-2.5 P-Microalbumin/Creatinine, R andom Urine Sample Reviewed date:10/03/2024 09:44:59 AM Interpretation:Normal Performing Lab: Notes/Report: Test performed by [facility] [address] [place] [address] , [address], [place] [address] Zeb Clemens MD, Napper Tender CLIA: [id number] Albumin/Creatinine Ratio, Urine 5 0-30 ug/m g Microalbumin, Urine, Random 1.3 Creatinine, Urine 264.9 P-PSA Reviewed date:10/03/2024 09:44:59 AM Interpretation:Normal Performing Lab: Notes/Report: Test performed by [facility] [address] [place] [address] , [address], [place] [address] Zeb Clemens MD, Napper Tender CLIA: [id number] PSA 1.13 <4.00 ng/mL Please note this [...] OV Performing Lab: Notes/Report: Test performed by [facility], [facility] , [address], [place] [address] Zeb Clemens MD, Napper Tender CLIA: [id number] Sodium 139 135-145 mmol/L Potassium 4.5 3.5-5.3 [...] Duration) Notes Start Date End Date Status Pataday 0.2 % 1 gtt in each affected eye once a day; Duration: 10 day(s) 12/12/2019 Active PROBIOTICS P.O. DAILY Active Omeprazole 20 MG Take 1 capsule [...] a day; Duration: 5 day(s) 03/19/2024 Active OSTEO-BIFLEX 1 P.O. TWICE A DAY Active Ozempic (0.25 or 0.5 MG/DOSE) 2 [...] by mouth once daily; Duration: 90 Active Cartia XT 240 MG 1 cap(s) orally once a day 10/26/2017 Active Immunizations Vaccine Route Administration Date Status [...] Status Risk Notes Problem Benign prostatic hypertrophy (335846360) Benign prostatic hypertrophy NOS (600.00) Active confirmed Problem Type II diabetes mellitus without complication (026067223) Type 2 diabetes mellitus without complications (E11.9) Active confirmed Problem Hyperuricemia (73484487) Hyperuricemia (E79.0) Active confirmed Problem Sciatica (88349008) Lumbago with sciatica, right side (M54.41) Active confirmed Problem Chronic pain (08875664) Other chronic pain (G89.29) Active confirmed Problem Sciatica (99859485) Lumbago with sciatica, left side (M54.42) Active confirmed Problem Chronic pain (96689512) Other chronic pain (G89.29) Active confirmed Problem Type II diabetes mellitus without complication (632170454) Type 2 diabetes mellitus without complication (E11.9) Active confirmed Problem Spinal stenosis of lumbosacral region (625966838) Spinal stenosis of lumbosacral region (M48.07) Active confirmed Problem Obstructive sleep apnea syndrome (39638504) Sleep apnea in adult (G47.33) Active confirmed Problem Hyperlipidaemia (46315475) Hyperlipidemia, unspecified hyperlipidemia type (E78.5) Active confirmed Problem Shoulder joint pain (462999139) Acute pain of right shoulder (M25.511) Active confirmed Problem Reactive depression (56266460) Reactive depression (F32.9) Active confirmed Problem Allergic rhinitis caused by pollen (76570205) Seasonal allergic rhinitis due to pollen (J30.1) Active confirmed Problem Sciatica (73625040) Acute right- sided low back pain with right-sided sciatica (M54.41) Active confirmed Problem Sciatica (24300090) Acute left-s ided low back pain with left-sided sciatica (M54.42) Active confirmed Problem Cardiac dysrhythmia (249913525) Cardiac dysrhythmia, unspecified (I49.9) Active confirmed Problem Pure hypercholesterolemia (883465355) Pure hypercholesterolemia (E78.00) Active confirmed Problem Chronic idiopathic constipation (33175740) Chronic idiopathic constipation (K59.04) Active confirmed Problem Benign prostatic hypertrophy without outflow obstruction (085159972) Benign prostatic hyperplasia without lower urinary tract symptoms (N40.0) Active confirmed Problem Ventricular prematur e complex (disorder) (993658083) Ventricular ectopy (I49.3) Active confirmed Problem Bicipital tenosynovitis (19996648) Biceps tendinitis of right upper extremity (M75.21) Active confirmed Problem Paresthesia of finge r (345725091) Paresthesia of finger (R20.2) Active confirmed Problem Chest pain (01602465) Xyphoidalgia (R07.89) Acti ve confirmed Problem Low back pain (050848706) Low back pain, unspecified (M54.50) Active confirmed Vital Signs Heart Rate 89 /min 05/20/2025 Blood pressure diastolic 72 mm Hg 05/20/2025 Height 69.25 in 05/20/2025 Blood pressure systolic 138 mm Hg 05/20/2025 Weight 206.4 lbs 05/20/2025 BMI 30.26 kg/m2 05/20/2025 Encounters Encounter Location Date Provider Diagnosis [facility] [address] [place], [place] [id number] 09/24/2024 Ashok Greene Type 2 diabetes taye itus without complication E11.9 ; Biceps tendinitis of right upper extremity M75.21 and Benign prostatic hyperplasia without lower urinary tract symptoms N40.[address] [facility] [address] [place], [place] [id number] 10/17/2024 Ferny Smyer Encounter for immunization Z23 [facility] [address] [place], [place] [id number] 02/11/2025 Ferny Smyer Acute URI J06.9 ; Hyperlipidemia, unspecified hyperlipidemia type E78.5 and BMI 29.0-29.9,adult Z68.[address] [facility] [address] [place] [id number] 03/28/2025 Ashok Greene Type 2 diabetes taye itus without complication E11.9 ; Acute pain of right shoulder M25.511 ; Spinal stenosis of lumbosacral region M48.07 and BMI 29.0-29.9,adult Z68.[address] [facility] [address] [place], [place] [id number] 05/20/2025 Ferny Smyer Pain in right foot M79.671 [facility] [address] [place], [place] [id number] 10/04/2024 R Ilir Mattat [facility] [address] [place], [place] [id number] 02/14/2025 R Ilir Mattat [facility] [address] [place], [place] [id number] 04/02/2025 R Ilir Mattat Type 2 diabetes taye itus without complication E11.9 [facility] [address] [place], [place] [id number] 04/03/2025 Ashok Greene [facility] [address] [place], [place] [id number] 04/08/2025 R Ilir Leon [facility] [address] [facility] [place], [place] [id number] 05/16/2025 Ashok Greene Assessments Encounter Date Diagnosis (ICD Code) Assessment Notes Treatment Notes Treatment Clinical Notes Section Notes 09/24/2024 Type 2 diabetes mellitus without complication (ICD-10 - E11.9) 09/24/2024 Biceps tendinitis of right upper extremity (ICD-10 - M75.21) 10/17/2024 Encounter for immunization (ICD-10 - Z23) 02/11/2025 Acute URI (ICD-10 - J06.9) 02/11/2025 Hyperlipidemia, unspecified hyperlipidemia type (ICD-10 - E78.5) 03/28/2025 Type 2 diabetes mellitus without complication (ICD-10 - E11.9) 03/28/2025 Acute pain of right shoulder (ICD-10 - M25.511) 04/02/2025 Type 2 diabetes mellitus without complication (ICD-10 - E11.9) 05/20/2025 Pain in right foot (ICD-10 - M79.671) 03/28/2025 Spinal stenosis of lumbosacral region (ICD-10 - M48.07) 02/11/2025 BMI 29.0-29.9,adult (ICD-10 - Z68.29) 09/24/2024 Benign prostatic hyperplasia without lower urinary tract symptoms (ICD-10 - N40.0) 03/28/2025 BMI 29.0-29.9,adult (ICD-10 - Z68.29) Plan Of Treatment Pending Test Test Name Order Date X ray : Foot, right 05/20/2025 Next Appt Details Provider Name:Ferny Escobedo ry, 05/20/2025 02:00:00 PM, [address], [address], [place], [id number], Provider Name:Ashok Shetty Lisa er, 05/23/2025 03:00:00 PM, [address], [address], [place], [id number], Insurance Providers Payer Name Payer Address Payer Phone Subscriber Number Group Number Insured Name Patient Relationship to Insured Coverage Start Date Coverage End Date MEDICARE PART B [address] [address] [place] [address] [id number] ROCAEL ANÍBALRY Self - patient is the insured [facility] [employer] [address] [place] [address] [phone] [id number] LAISHA COTE Self - patient is the insured Medications Administered Medication Instructions Date of Administration Dosage Notes Dexamethasone 10/14/2008 1 mL Dexamethasone 07/18/2009 1 mL Morphine 10/06/2016 3 mg phenergan 25 mg/ml 10/06/2016 12.5 mg Medical (General) History Medical History History ICD Code low white blood cell count Hyperuricemia Allergic Rhinitis Esophageal Reflux Holter 02/16/2017 PVC's and run of VT chronic back pain Surgical History Surgery Date(Month/Year) Nose-Deviated Septum 2005 Tonsillectomy, uvula, soft palate LT Knee Repair 01/2014 Heart Cath - [place] 07/2017 Colonoscopy, Dr. Almanza 01/2019 [facility]un[facility] Moises Grant 09/29 Hospitalization History Reason Date(Month/Year) [facility] ER/Stay - heart palpitations 08/02-0 01/2017 Ankle Fracture 1980
--- OUTSIDE RECORDS SUMMARY | 2025-05-20 14:30 | XMS_ITS | Clinical Summary ---
Author Organization [facility] Arrhythmia [facility] Address [address] [facility] [address] [place] [address] Phone Care Team Providers Care Chief Crew Scheduler Name Role Phone Oneil Escalera MD Unavailable [phone] Niels Greene MD Primary Care Provider [phone] Allergies Active Allergy Reactions Criticality Noted Date [...] Heart Disease Mother Heart Attack Paternal Grandfather AR at a ge 65 Anesth Problems Neg [...] Office Visit [facility] [address] [address] Janet Monet, GILL TENDER [address] [place] [phone] Health Maintenance Due Date Last Done Comments Wellness Exam Medicare 1958 Lipids 12/03/1963 Diabetic Eye Exam 12/03/1971 Hepatitis C Screening 12/03/1971 Kidney Health: uACR 12/03/1971 Cologuard 1998 Colon Cancer Screening 1998 Colonoscopy 1998 FIT 1998 Sigmoidoscopy 1998 Virtual Colonography 1998 RSV or 60+ (1 - Risk 60-74 years 1-dose series) 2013 Kidney Health: eGFR 10/26/2018 10/26/2017, 8 Pneumococcal Vaccine 50+ (2 of 2 - PPSV23, PCV20, or PCV21) 02/19/2019 12/25/2018 Hemoglobin A1c 06/16/2022 12/15/2021 COVID-19 Vaccine ( - 2024- season) 2025 09/09/2021, 01/21/2021, 12/24/2020 Influenza Vaccine (#1) 2025 [...] - 145 mmol/L 10/26/2017 12:14 PM EST [facility] Potassium 4.4 3.5 - 5.0 mmol/L 10/26/2017 12:14 PM [facility] Chloride 101 98 - 107 mmol/L 10/26/2017 12:14 PM [facility] Total CO2 26 22 - 29 mmol/L 10/26/2017 12:14 PM [facility] Anion Gap 13 7 - 16 mmol/L 10/26/2017 12:14 PM [facility] Calcium 9.4 8.8 - 10.2 mg/dL 10/26/2017 12:14 PM [facility] Glucose Lvl 101(H) 82 - 100 mg/dL 10/26/2017 12:14 PM [facility] BUN 17 8 - 23 mg/dL 10/26/2017 12:14 PM [facility] Creatinine 1.15 0.67 - 1.30 mg/dL 10/26/2017 12:14 PM [facility] GFR Afr Am 78 mL/min/1.7 3 m2 10/26/2017 12:14 PM [facility] GFR Non Afr Am 67 mL/min/1.7 3 m2 10/26/2017 12:14 PM [facility] Comment: GFR Afr Am and [...] 11:17 AM EST 10/26/2017 11:30 AM EST [facility] - 10/26/2017 12:14 PM EST Notify salesperson neckties if creatine is 1.5 or greater, and/or GFR <55, and/or potassium greater than or equal to 5.5 or less than or equal to 3.0. Do not repeat if done within past 10 days. us Oneil Escalera MD CHEMISTRY ORDERABLES Fin al Result [facility] [address] [address] from Last 3 Months or Most Recently Relevant to Health Maintenance Insurance MEDICARE [place] PART A AND B Member Subscriber Plan / Payer (Ef fective 2018-Present) Name:Ezio Atkins Member ID:[id number] Relation to Subscriber:Self Name:Ezio Atkins Subscriber ID:[id number] Payer ID:Not on file Group ID:Not on file Type:Not on file Address: [address] MEDICARE [place] PART A AND B [facility] INS[facility]ANCE Care Teams Chief Crew Scheduler Relationship Specialty Start Date End Date Niels Greene MD [facility] [place] [address] [place] [address] PCP - General Family Medicine 08/12/17 Oneil Escalera MD [address] [place] [address] [place] [address] Consulting Physician Internal Medicine - Clinical Cardiac Electrophysiology 08/10/17
== END 2025-05-20 23:59 | disposition home or self-care (01) ==
LOC: RAD 14:26
PROVIDERS: PCP Family Medicine; Visit Provider Family Medicine
DX: M19.071 Primary osteoarthritis, right ankle and foot (principal); Z98.1 Arthrodesis status
CPT/HCPCS: 73630

== ENCOUNTER 2025-05-28 14:56 | Outpatient (CLI) | payer MEDICARE, OTHER, SELFPAY ==
--- OUTSIDE RECORDS SUMMARY | 2024-10-17 11:00 | XMS_ITS ---
Author Organization [facility] Address [address] [facility] [address] [facility] [address] [place] [phone] Care Team Providers Care Buffet Attendant Name Role Phone Jaron Leon Primary Care Provider [phone] Ferny Santana Unavailable [phone] REASON FOR VISIT flu shot only Immunizations Vaccine Route Administration Date Status Comme nts Fluzone High Dose (65yr and older) IM Intramuscular 10/17/2024 Administered Encounters Encounter Location Date Provider Diagnosis [facility] [address] [place] [id number] 10/17/2024 Ferny Santana Encounter for immunization Z23 Assessments Encounter Date Diagnosis (ICD Code) Assessment Notes Treatment Notes Treatment Clinical Notes Section Notes 10/17/2024 Encounter for immunization (ICD-10 - Z23) Plan Of Treatment Next Appt Details Provider Name:Ashok Shetty Lisa er, 07/11/2025 02:00:00 PM, [address] [facility], [address], [place], [place], [phone], Progress Notes * LAISHA COTEDOB: (69 yo M)Acc No.[id number]:10/17/2024 Patient: LAISHA CAMPBELL Provider: Roxana Santana M.D. :1955 A ge:68 Y S ex:Male Date:10/17/2024 Address:[address] [place] [address], [place], [id number] Pcp:Jaron Leon Subjective: * Chief Complaints: * [...] Electronic signature of Lyndsay Santana MD on 05/28/2025 at 02:59 PM EDT Sign off status: Pending * Provider: Roxana Santana M.D. Date: 0 10/17/2024 Generated for Pura villalobos/Jamal/Anna on: 0 05/28/2025 02:59 PM EDT
--- OUTSIDE RECORDS SUMMARY | 2025-02-11 06:45 | XMS_ITS ---
[facility] Organization [facility] [address] [facility] [address] [place] [phone] Care Team Providers Care Solar Pv Installer Name Role Phone Jaron Leon Primary Care Provider Ferny Santana Unavailable [phone] Allergies Allergen (clinical drug ingredient) Drug/Non Drug Allergy documented on EMR Reaction Allergy Type Onset Date Status diphenhydramine Benadryl Allergy restless legs Drug Allerg y Active Results Component Value Reference Range Notes CBC Fingerstick (in house) Reviewed date:02/12/2025 10:28:39 AM Interpretation: Performing Lab: Notes/Report: wbc 8.7 3.5 - 10 lym 15.6% 15 - 50 mid 5.1% 2 - 15 gran 79.3% 35 - 80 rbc 5.27 3.5 - 5.5 hgb 15.5 11.5 - 16.5 hct 47.9 35 - 55 mcv 90.9 75 - 100 mch 29.5 25 - 35 mchc 32.4 31 - 38 plat 164 100 - 400 REASON FOR VISIT sore throat ,congestion Medications Medication SIG (Take, Route, Frequency, Duration) Notes Start Date End Date Status PROBIOTICS P.O. DAILY Active Cartia XT 240 MG 1 cap(s) orally once a day 10/26/2017 Active OSTEO-BIFLEX 1 P.O. TWICE A DAY Active Zithromax Z-Ryan 250 MG as directed Orally daily; Duration: 5 days 02/11/2025 Active Promethazine-DM 6.25-15 MG/5ML 5 mL as needed Orally every 6 hrs 02/11/2025 Active EQ Allergy Relief (Cetirizine) 10 MG Take 1 tablet by mouth once daily; Duration: 90 Active Fluticasone Propionate 50 MCG/ACT Use 1 spray(s) in each nostril once daily; Duration: 60 Active metFORMIN HCl 500 MG Take 1 tablet by mouth twice daily; Duration: 90 Active CPAP SUPPLIES DIRECTED diagnosis code: G47.33 Sleep apnea in adult 09/02/2021 Active Sulindac 200 MG 1 tab(s) orally 2 times a day prn; Duration: 90 days Active Sertraline HCl 50 MG 1 tablet Orally Onc e a day; Duration: 90 days Active Mupirocin 2 % 1 application Externally Twice a day; Duration: 5 day(s) 03/19/2024 Active Pataday 0.2 % 1 gtt in each affected eye once a day; Duration: 10 day(s) 12/12/2019 Active Omeprazole 20 MG Take 1 capsule by mouth once daily; Duration: 90 Active Vital Signs Weight 200.8 lbs 02/11/2025 Blood pressure systolic 122 mm Hg 02/12/20 25 Blood pressure diastolic 78 mm Hg 025 Heart Rate 102 /min 02/11/2025 Height 69.25 in 02/11/2025 BMI 29.44 kg/m2 02/11/2025 Encounters Encounter Location Date Provider Diagnosis [facility] [address] [id number] 02/11/2025 Ferny Santana Acute URI J06.9 ; Hyperlipidemia, unspecified hyperlipidemia type E78.5 and BMI 29.0-29.9,adult Z68.29 Assessments Encounter Date Diagnosis (ICD Code) Assessment Notes Treatment Notes Treatment Clinical Notes Section Notes 02/11/2025 Acute URI (ICD-10 - J06.9) 02/11/2025 Hyperlipidemia, unspecified hyperlipidemia type (ICD-10 - E78.5) 02/11/2025 BMI 29.0-29.9,adult (ICD-10 - Z68.29) Plan Of Treatment Medication Medication Name Sig Start Date Stop Date Notes Zithromax Z-Ryan 250 MG as directed Orall y daily; Duration: 5 days 02/11/2025 Promethazine-DM 6.25-15 MG/5ML 5 mL as n eeded Orally every 6 hrs 02/11/2025 Next Appt Details Follow Up: prn, Reason: Provider Name:Ashok Shetty Lisa er, 07/11/2025 02:00:00 PM, [address] [facility] [address], [address], [place], [place], [phone], Progress Notes * LAISHA COTEDOB: 4 (69 yo M)Acc No.[id number]:02/11/2025 Progress Notes Patient: LAISHA CAMPBELL Provider: Roxana Santana M.D. :1955 A ge:69 Y S ex:Male Date:02/11/2025 Address:[address] [place] [address], [facility] Pcp:Jaron [place] Subjective: * Chief Complaints: * 1 . Sore throat ,congestion. * HPI: E NT/respiratory: 69 year old male presents with c/o cough P t complains of greenish yellow sputum production cough for 2 days. Associated with headache, sore throat, chest congestion and fatigue. * ROS: D ERMATOLOGY: no R jason. n o H radha. G ASTROENTEROLOGY: no N ausea. n o V omiting. U ROLOGY: no D ifficulty urinating. n o B lood in urine. * Medical History: L ow white blood cell count, Hyperuricemia, Allergic Rhinitis, Esophageal Reflux, Holter 02/16/2017 PVC's and run of VT. * Surgical History: N ose-Deviated Septum 2004, Tonsillectomy, uvula, soft palate 06/2007, LT Knee Repair 01/2014, Heart Cath - [place] 07/2017, Colonoscopy, Dr. Almanza 01/2019, Bunion and Hammer toe, Dr. De [place] 10/12/2022. * Hospitalization/Major Diagno stic Procedure: A nkle Fracture 1979, [facility] ER/Stay - heart palpitations 08/02-01/2017. * Family History: F ather: alive 79 yrs. M other: alive 76 yrs, diabetes. P aternal Grand Father: diabetes. 2 sister(s) . 2 son(s) . . * Social History: C URRENT TOBACCO USE: No . C affeine: yes, frequency:daily. Exercise: no. Home smoke detector use: yes. Marital Status: . Past smoking status: never smoked. Alcohol: no. * Medications: T aking OSTEO-BIFLEX 1 P.O. TWICE A DAY , Taking Cartia XT 240 MG Capsule Extended Release 24 Hour 1 cap(s) orally once a day , Taking PROBIOTICS P.O. DAILY , Taking Pataday 0.2 % Solution 1 gtt in each affected eye once a day , Taking Mupirocin 2 % Ointment 1 application Externally Twice a day , Taking Sertraline HCl 50 MG Tablet 1 tablet Orally Once a day , Taking Sulindac 200 MG Tablet 1 tab(s) orally 2 times a day prn , Taking Omeprazole 20 MG Capsule Delayed Release Take 1 capsule by mouth once daily , Taking metFORMIN HCl 500 MG Tablet Take 1 tablet by mouth twice daily , Taking CPAP SUPPLIES DIRECTED , Notes to Pharmacist: diagnosis code: G47.33 Sleep apnea in adult, Taking Fluticasone Propionate 50 MCG/ACT Suspension Use 1 spray(s) in each nostril once daily , Taking EQ Allergy Relief (Cetirizine) 10 MG Tablet Take 1 tablet by mouth once daily , Discontinued Allopurinol 100 MG Tablet 1 tab(s) orally once a day * Allergies: B enadryl Allergy: restless legs - Side Effects. Objective: * Vitals: W t: 200.8, Temp: 98.2, BP: 122/78, HR: 102, O2 Sat: 97% on RA, Nurse: shantanu, Ht: 69.25, BMI:29.44. * Examination: E NT/Respiratory: General Appearance: N AD. O ral cavity : e rythema without exudate on pharynx. N peggy : n o cervical lymphadenopathy. H eart : R RR, normal S1 S2. L ungs: c lear to auscultation bilaterally. Assessment: * Assessment: 1. A cute URI - J06.9 (Primary) 2 . H yperlipidemia, unspecified hyperlipidemia type - E78.5 3 . B WA 29.0-29.9,adult - Z68.29 Plan: * Treatment: Value Reference Range w bc 8.7 3.5 - 10 * l ym 15.6% 15 - 50 * m id 5.1% 2 - 15 * g ran 79.3% 35 - 80 * r bc 5.27 3.5 - 5.5 * h gb 15.5 11.5 - 16.5 * h ct 47.9 35 - 55 * m cv 90.9 75 - 100 * m ch 29.5 25 - 35 * m chc 32.4 31 - 38 * p lat 164 100 - 400 * Lauryn Wan 02/11/2025 11:05: 36 AM EDT > Provider reviewed results while patient in office. * Procedure Codes: G 2211 Complex e/[place], [address] CAPILLARY BLOOD DRAW, 94808 CBC WITH AUTO DIFF, G8420 BMI<30 AND >=22 CALC & DOCU, 1036F TOBACCO NON-USER, G8783 BP SCR PRFRM RCMDD DEFIND SCR INTVL, G8752 MOST RECENT SYSTOLIC BP < 140MM HG, G8754 MOST RECENT DIASTOLIC BP < 90MM HG * Follow Up: p rn * Images: Billing Information: * Visit Code: 07842 Office Visit, Est Pt., Level 3. * Procedure Codes: G2211 Complex e/[place]. [address] CAPILLARY BLOOD DRAW. 42670 CBC WITH AUTO DIFF. G8420 BMI<30 AND >=22 CALC & DOCU. 1036F TOBACCO NON-USER. G8783 BP SCR PRFRM RCMDD DEFIND SCR INTVL. G8752 MOST RECENT SYSTOLIC BP < 140MM HG. G8754 MOST RECENT DIASTOLIC BP < 90MM HG. * Electronic signature of Lyndsay [place]ana MD on 05/28/2025 at 02:59 PM EDT Sign off status: Pending * Provider: Roxana Santana M.D. Date: 0 02/11/2025 Generated for Pura villalobos/Jamal/eTransmitting on: 0 05/28/2025 02:59 PM EDT History and Physical Notes * HPI (History of Present Illness) Category Sub-Category Detail Notes Category Not es ENT/respiratory cough Pt complains of greenish yellow sputum production cough for 2 days. Associated with headache, sore throat, chest congestion and fatigue Examination Category Sub-Category Detail Notes Category Not es ENT/Respiratory Oral cavity : erythema without exudate on pharynx Neck : no cervical lymphade nopathy Heart : RRR, normal S1 S2 Lungs: clear to auscultatio n bilaterally General Appearance: NAD
--- OUTSIDE RECORDS SUMMARY | 2025-03-28 11:45 | XMS_ITS ---
Author Organization [facility] Address [address] [place] [id number] Care Team Providers Care Gas Pit Worker Name Role Phone Jaron Leon Primary Care Provider Ashok Greene [phone] Allergies Allergen (clinical drug ingredient) Drug/Non Drug Allergy documented on EMR Reaction Allergy Type Onset Date Status diphenhydramine Benadryl Allergy restless legs Drug Allerg y Active Results Component Value Reference Range Notes Glycohemoglobin A1c (in hous e) Reviewed date:03/29/2025 10:56:49 AM Interpretation:6.1% Performing Lab: Notes/Report: 6.1% glycohemoglobin 6.1% 5 - 6.5 % P-Comprehensive Metabolic Pa carmel (CMP) Reviewed date:04/02/2025 11:16:21 AM Interpretation:Normal Performing Lab: Notes/Report: CLIA: [id number] Zeb Clemens MD, Professional Wrestler [address] [facility] , [address], [place] [address] Test performed by [facility] Sodium 141 135-145 mmol/L Potassium 4.6 3.5-5.3 mmol/L Chloride 103 97-108 mmol/L CO2 24 20-32 mmol/L Glucose 99 65-99 mg/dL BUN 16 8-23 mg/dL Creatinine 1.17 0.70-1.30 mg/dL Calcium 9.3 8.6-10.4 mg/dL eGFR by Creatinine 67 >59 mL/min/1.73m2 Protein 6.5 6.0-8.3 g/dL Albumin 4.5 3.5-5.3 g/dL Alkaline Phosphatase 81 40-129 IU/L ALT (SGPT) 19 <5-55 IU/L AST (SGOT) 24 <5-46 IU/L Bilirubin, Total 0.4 <0.2-1.2 mg/dL A/G Ratio 2.3 1.1-2.5 REASON FOR VISIT 6 month ckup, Needs labs & diabetic eye exam Medications Medication SIG (Take, Route, Frequency, Duration) Notes Start Date End Date Status EQ Allergy Relief (Cetirizine) 10 MG Take 1 tablet by mouth once daily; Duration: 90 Active Fluticasone Propionate 50 MCG/ACT Use 1 spray(s) in each nostril once daily; Duration: 60 Active Semaglutide (2 MG/DOSE) 8 MG/3ML 0.25mg Subcutaneous once a week 03/28/2025 Active CPAP SUPPLIES DIRECTED diagnosis code: G47.33 Sleep apnea in adult 09/02/2021 Active Mupirocin 2 % 1 application Externally Twice a day; Duration: 5 day(s) 03/19/2024 Active Sulindac 200 MG 1 tab(s) orally 2 times a day prn; Duration: 90 days Active Pataday 0.2 % 1 gtt in each affected eye once a day; Duration: 10 day(s) 12/12/2019 Active PROBIOTICS P.O. DAILY Active Cartia XT 240 MG 1 cap(s) orally once a day 10/26/2017 Active Sertraline HCl 50 MG 1 tablet Orally Onc e a day; Duration: 90 days Active Omeprazole 20 MG Take 1 capsule by mouth once daily; Duration: 90 Active OSTEO-BIFLEX 1 P.O. TWICE A DAY Active metFORMIN HCl 500 MG Take 1 tablet by mouth twice daily; Duration: 90 Active Problems Problem Type SNOMED Code ICD Code Onset Dates Problem Status W/U Status Risk Notes Problem Spinal stenosis of lumbosacral region ([id number]) Spinal stenosis of lumbosacral region (M48.07) Active confirmed Vital Signs Weight 204.6 lbs 03/28/2025 Blood pressure systolic 122 mm Hg 03/28/20 25 Blood pressure diastolic 80 mm Hg 025 Heart Rate 83 /min 03/28/2025 Height 69.25 in 03/28/2025 BMI 29.99 kg/m2 03/28/2025 Encounters Encounter Location Date Provider Diagnosis [facility] [address] [place] [address] [address] [place] [id number] 03/28/2025 Ashok Greene Type 2 diabetes mellitus without complication E11.9 ; Acute pain of right shoulder M25.511 ; Spinal stenosis of lumbosacral region M48.07 and BMI 29.0-29.9,adult Z68.29 Assessments Encounter Date Diagnosis (ICD Code) Assessment Notes Treatment Notes Treatment Clinical Notes Section Notes 03/28/2025 Type 2 diabetes mellitus without complication (ICD-10 - E11.9) 03/28/2025 Acute pain of right shoulder (ICD-10 - M25.511) 03/28/2025 Spinal stenosis of lumbosacral region (ICD-10 - M48.07) 03/28/2025 BMI 29.0-29.9,adult (ICD-10 - Z68.29) Plan Of Treatment Medication Medication Name Sig Start Date Stop Date Notes Semaglutide (2 MG/DOSE) 8 MG/3ML 0.25mg Subcutaneous once a week 03/28/2025 Next Appt Details Follow Up: 2 Months, Reason: Provider Name:Ashok Gonzalez er, 07/11/2025 02:00:00 PM, [address] [place] [address], [address], [place] [id number], Progress Notes * LAISHA COTEDOB: 4 (69 yo M)Acc No.[id number]:03/28/2025 Progress Notes Patient: LAISHA CAMPBELL Provider: Ashok Greene M.D. :1955 A ge:69 Y S ex:Male Date:03/28/2025 Address:[address] [place] [address], [id number] Pcp:Jaron Leon Subjective: * Chief Complaints: * 1 . 6 month ckup. 2. Needs labs & diabetic eye exam. * HPI: C ardiology: The patient is here for a check up on Hyperlipidemia and Diabetes. Pt states he is doing good except for some low back pain since October. Pt states the pain is getting worse. Pt states he saw [facility] orthopedic and had an MRI and Ct scan of the back. Pt states he would like to discuss these results. See pt docs. Pt rates his pain 8-9/10 at its worse. Pt states he has not pain today but the pain is worse if he sits for very long. Pt is not fasting. Denies : Chest Pain. D enies : Short of Breath. D enies : Dizziness. D enies : Palpitations. S houlder/Upper arm: c/o shoulder pain. * ROS: D ERMATOLOGY: no R jason. [...] Diagno stic Procedure: A nkle Fracture 1979, [facility] ER/Stay - heart palpitations 08/02-01/2017. * Family [...] application Externally Twice a day , Taking Sulindac 200 MG Tablet 1 tab(s) orally 2 times a day prn , Taking CPAP SUPPLIES DIRECTED , Notes to Pharmacist: diagnosis code: G47.33 Sleep apnea in adult, Taking Fluticasone Propionate 50 MCG/ACT Suspension Use 1 spray(s) in each nostril once daily , Taking EQ Allergy Relief (Cetirizine) 10 MG Tablet Take 1 tablet by mouth once daily , Taking metFORMIN HCl 500 MG Tablet Take 1 tablet by mouth twice daily , Taking Sertraline HCl 50 MG Tablet 1 tablet Orally Once a day , Taking Omeprazole 20 MG Capsule Delayed Release Take 1 capsule by mouth once daily , Discontinued Zithromax Z-Ryan 250 MG Tablet as directed Orally daily , Discontinued Promethazine-DM 6.25-15 MG/5ML Syrup 5 mL as needed Orally every 6 hrs , Medication List reviewed and reconciled with the patient * Allergies: B enadryl Allergy: restless legs - Side Effects. Objective: * Vitals: W t: 204.6, Temp: 98.4, BP: 122/80, HR: 83, Nurse: DAREN, Ht: 69.25, BMI:29.99. * Examination: G eneral Examination: General Appearance: [...] masses. N eurologic Exam: I ntact, gait normal, DTR's equal at patellae, right ankle is depressed. S kin: n ormal, no rash. B ack: normal. E xtremities: t here is less tenderness at biceps tendon on the right, not tender at deltoid insertion.. Assessment: * Assessment: 1. T ype 2 diabetes mellitus without complication - E11.9 (Primary) 2 . A cute pain of right shoulder - M25.511 3 . S danyelle stenosis of lumbosacral region - M48.07 4 . B [place] 29.0-29.9,adult - Z68.29 Plan: * Treatment: Value Reference Range A /G Ratio 2.3 1.1-2.5 - * A lbumin 4.5 3.5-5.3 - g/dL * A lkaline Phosphatase 81 40-129 - IU/L * A LT (SGPT) 19 <5-55 - IU/L * A ST (SGOT) 24 <5-46 - IU/L * B ilirubin, Total 0.4 <0.2-1.2 - mg/dL * B UN 16 8-23 - mg/dL * C alcium 9.3 8.6-10.4 - mg/dL * C hloride 103 97-108 - mmol/L * C O2 24 20-32 - mmol/L * C reatinine 1.17 0.70-1.30 - mg/dL * G lucose 99 65-99 - mg/dL * P otassium 4.6 3.5-5.3 - mmol/L * S odium 141 135-145 - mmol/L * P rotein 6.5 6.0-8.3 - g/dL * e GFR by Creatinine 67 >59 - mL/min/1.73m2 * Dilcia King 04/02/2025 11: 16:10 AM EDT > Patient informed of normal results. ?LAB: Glycohemoglobin A1c (in house) (Collection Date & Time - 03/28/2025)? 6.1%* Value Reference Range g lycohemoglobin 6.1% 5 - 6.5 % * Liat Chauhan 03/28/2025 04:2 2:07 PM EDT > Provider reviewed results while patient in office. * Procedure Codes: G 2211 Complex e/[place], [address] GLYCATED HEMOGLOBIN TEST, Modifiers: QW , 3044F HG A1C LEVEL LT 7.0%, 1036F TOBACCO NON-USER, G8420 BMI<30 AND >=22 CALC & DOCU, G8783 BP SCR PRFRM RCMDD DEFIND SCR INTVL, G8752 MOST RECENT SYSTOLIC BP < 140MM HG, G8754 MOST RECENT DIASTOLIC BP < 90MM HG * Follow Up: 2 Months * Images: Billing Information: * Visit Code: 84310 Office Visit, Est Pt., Level 3. * Procedure Codes: G2211 Complex e/[place]. [address] GLYCATED HEMOGLOBIN TEST. Modifiers: QW 3044F HG A1C LEVEL LT 7.0%. 1036F TOBACCO NON-USER. G8420 BMI<30 AND >=22 CALC & DOCU. G8783 BP SCR PRFRM RCMDD DEFIND SCR INTVL. G8752 MOST RECENT SYSTOLIC BP < 140MM HG. G8754 MOST RECENT DIASTOLIC BP < 90MM HG. * Electronic signature of Ashok Greene MD on 05/28/2025 at 02:59 PM EDT Sign off status: Pending * Provider: Ashok Greene M.D. Date: 0 03/28/2025 Generated for Pura villalobos/Jamal/Codyitting on: 0 05/28/2025 02:59 PM EDT History and Physical Notes * HPI (History of Present Illness) Category Sub-Category Detail Notes Category Not es Cardiology Short of Breath Chest Pain Palpitations Dizziness Shoulder/Upper arm shoulder pain Examination Category Sub-Category Detail Notes Category Not es General Examination HEENT: small lesion of the inner nare on left Heart: RSR Lungs: clear to auscultatio n Abdomen: soft and nontender, no organomegaly or masses Extremities: there is less tender ness at biceps tendon on the right, not tender at deltoid insertion. General Appearance: NAD Skin: normal, no rash Neurologic Exam: Intact, gait normal, DTR's equal at patellae, right ankle is depressed Neck: supple, no lymphaden opathy, no carotid bruits Oral cavity: no lesions, mucosa m oist and WNL, no erythema Peripheral pulses: Back: normal Chest: normal shape and exp ansion
--- OUTSIDE RECORDS SUMMARY | 2025-05-20 10:00 | XMS_ITS ---
Author Organization [facility] Address [address] [place] [id number] Care Team Providers Care Engineering Programmer Name Role Phone Jaron Leon Primary Care Provider [phone] Ferny Santana Unavailable [phone] Allergies Allergen (clinical drug ingredient) Drug/Non Drug Allergy documented on EMR Reaction Allergy Type Onset Date Status diphenhydramine Benadryl Allergy restless legs Drug Allerg y Active Results Component Value Reference Range Notes X ray : Foot, right Reviewed date:05/22/2025 01:40:41 PM Interpretation:degenerative changes similar to prior exam Performing Lab: Notes/Report: degenerative changes similar to prior exam REASON FOR VISIT poss broken toe Medications Medication SIG (Take, Route, Frequency, Duration) Notes Start Date End Date Status Omeprazole 20 MG Take 1 capsule by mouth once daily; Duration: 90 Active Ozempic (0.25 or 0.5 MG/DOSE) 2 MG/3ML 0.25 mg Subcutaneous once a week; Duration: 30 days 04/02/2025 Active Sertraline HCl 50 MG 1 tablet Orally Onc e a day; Duration: 90 days Active metFORMIN HCl 500 MG Take 1 tablet by mouth twice daily; Duration: 90 Active EQ Allergy Relief (Cetirizine) 10 MG Take 1 tablet by mouth once daily; Duration: 90 Active Pataday 0.2 % 1 gtt in each affected eye once a day; Duration: 10 day(s) 12/12/2019 Active Fluticasone Propionate 50 MCG/ACT Use 1 spray(s) in each nostril once daily; Duration: 60 Active CPAP SUPPLIES DIRECTED diagnosis code: G47.33 Sleep apnea in adult 09/02/2021 Active Sulindac 200 MG 1 tab(s) orally 2 times a day prn; Duration: 90 days Active Mupirocin 2 % 1 application Externally Twice a day; Duration: 5 day(s) 03/19/2024 Active PROBIOTICS P.O. DAILY Active OSTEO-BIFLEX 1 P.O. TWICE A DAY Active Cartia XT 240 MG 1 cap(s) orally once a day 10/26/2017 Active Vital Signs Weight 206.4 lbs 05/20/2025 Blood pressure systolic 138 mm Hg 05/20/20 25 Blood pressure diastolic 72 mm Hg 025 Heart Rate 89 /min 05/20/2025 Height 69.25 in 05/20/2025 BMI 30.26 kg/m2 05/20/2025 Encounters Encounter Location Date Provider Diagnosis [facility] [address] [facility] [address] [facility] [address] [place] [id number] 05/20/2025 Ferny Santana Pain in right foot M79.671 Assessments Encounter Date Diagnosis (ICD Code) Assessment Notes Treatment Notes Treatment Clinical Notes Section Notes 05/20/2025 Pain in right foot (ICD-10 - M79.671) Plan Of Treatment Next Appt Details Follow Up: via phone to repo rt test results, Reason: Provider Name:Ashok Gonzalez , 07/11/2025 02:00:00 PM, [address] [facility] [address] [facility], [address], [facility], [place], [id number], Progress Notes * LAISHA COTEDOB: (69 yo M)Acc No.[id number]:05/20/2025 Progress Notes Patient: Mitul GARCIA LAISHA Provider: Roxana Santana M.D. :1955 A ge:69 Y S ex:Male Date:05/20/2025 Address:[address] [place] [address], [facility] Pcp:Jaron Leon Subjective: * Chief Complaints: * 1 . Poss broken toe. * HPI: S houlder/Upper arm: 69 year old male presents with c/o shoulder pain S udden pain in right second toe when he was trying to kill a wasp. C/o pain in toe and bruising. [place] a snap.. * Medical History: L ow white blood cell count, Hyperuricemia, Allergic Rhinitis, Esophageal Reflux, Holter 02/16/2017 PVC's and run of VT, Chronic back pain. * Surgical History: N ose-Deviated Septum 2004, Tonsillectomy, uvula, soft palate 06/2007, LT Knee Repair 01/2014, Heart Cath - [facility] 07/2017, Colonoscopy, Dr. Almanza 01/2019, Bunion and Hammer toe, Dr. De Leon 10/12/2022. * Hospitalization/Major Diagno stic Procedure: A nkle Fracture 1979, [facility] ER/Stay - heart palpitations 08/02-01/2017. [...] tablet Orally Once a day , Taking Ozempic (0.25 or 0.5 MG/DOSE) 2 MG/3ML Solution Pen-injector 0.25 mg Subcutaneous once a week , Taking Omeprazole 20 MG Capsule Delayed Release Take 1 capsule by mouth once daily , Medication List reviewed and reconciled with the patient * Allergies: B enadryl Allergy: restless legs - Side Effects. Objective: * Vitals: W t: 206.4, Temp: 98.8, BP: 138/72, HR: 89, Nurse: KAMLESH, Ht: 69.25, BMI:30.26. * Examination: G eneral Examination: General Appearance: N AD, walks with a slight limp. E xtremities: s ome tenderness to palpation at the 2 nd MTP joint. minimal edema, well healed surgical scar over the dorsum of the left mid foot. Assessment: * Assessment: 1. P ain in right foot - M79.671 (Primary) Plan: * Treatment: * Procedure Codes: G 2211 Complex e/m visit add on * Follow Up: v ia phone to report test results * Images: Billing Information: * Visit Code: 05716 Office Visit, Est Pt., Level 3. * Procedure Codes: G2211 Complex e/m visit add on. * Electronic signature of Lyndsay Santana MD on 05/28/2025 at 02:59 PM EDT Sign off status: Pending * Provider: Roxana Santana M.D. Date: 0 05/20/2025 Generated for Pura villalobos/Jamal/Codyitting on: 0 05/28/2025 02:59 PM EDT History and Physical Notes * HPI (History of Present Illness) Category Sub-Category Detail Notes Category Not es Shoulder/Upper arm shoulder pain Sudden pain i n right second toe when he was trying to kill a wasp. C/o pain in toe and bruising. [place] a snap. Examination Category Sub-Category Detail Notes Category Not es General Examination Extremities: some tendern ess to palpation at the 2 nd MTP joint. minimal edema, well healed surgical scar over the dorsum of the left mid foot General Appearance: NAD, walks with a sl ight limp
--- OUTSIDE RECORDS SUMMARY | 2025-05-23 11:00 | XMS_ITS ---
Author Organization [facility] Address [address] [place] [id number] Care Team Providers Care Packaging Operator Name Role Phone Jaron Leon Primary Care Provider [phone] Ashok Greene Unavailable [phone] Allergies Allergen (clinical drug ingredient) Drug/Non Drug Allergy documented on EMR Reaction Allergy Type Onset Date Status diphenhydramine Benadryl Allergy restless legs Drug Allerg y Active REASON FOR VISIT 2 months, Needs labs, diabetic eye exam, Prevnar, & flu vaccines Medications Medication SIG (Take, Route, Frequency, Duration) [...] a day prn; Duration: 90 days Active Cartia XT 240 MG 1 cap(s) orally once a day 10/26/2017 Active OSTEO-BIFLEX 1 P.O. TWICE A DAY Not-Taking Pataday 0.2 % 1 gtt in each affected eye once a day; Duration: 10 day(s) 12/12/2019 Active PROBIOTICS P.O. DAILY Active Mupirocin 2 % 1 application Externally Twice a day; Duration: 5 day(s) 03/19/2024 Active Omeprazole 20 MG Take 1 capsule by mouth once daily; Duration: 90 Active CPAP machine and supplies - as directed as directed 05/23/2025 Active Sertraline HCl 50 MG 1 tablet Orally Once a day; Duration: 90 days Active Problems Problem Type SNOMED Code ICD Code Onset Dates Problem Status W/U Status Risk Notes Problem Obstructive sleep apnea syndrome (93662188) NORMA on CPAP (G47.33) Active confirmed Vital Signs Weight 205.2 lbs 05/23/2025 Blood pressure systolic 126 mm Hg 05/23/20 Blood pressure diastolic 84 mm Hg 025 Heart Rate 78 /min 05/23/2025 Height 69.25 in 05/23/2025 BMI 30.08 kg/m2 05/23/2025 Encounters Encounter Location Date Provider Diagnosis [facility] [address] [place] [id number] 05/23/2025 Ashok Greene Right shoulder pain, unspecified chronicity M25.511 and NORMA on CPAP G47.33 Assessments Encounter Date Diagnosis (ICD Code) Assessment Notes Treatment Notes Treatment Clinical Notes Section Notes 05/23/2025 Right shoulder pain, unspecified chronicity (ICD-10 - M25.511) 05/23/2025 NORMA on CPAP (ICD-10 - G47.33) Plan Of Treatment Medication Medication Name Sig Start Date Stop Date Notes CPAP machine and supplies - as directed as directed 2024 Pending Test Test Name Order Date X ray : Shoulder, right 05/23/2025 Next Appt Details Follow Up: 6 Weeks, Reason: Provider Name:Ashok Gonzalez er, 07/11/2025 02:00:00 PM, [address], [place], [id number], Progress Notes * LAISHA COTEDOB: (69 yo M)Acc No.[id number]:05/23/2025 Progress Notes Patient: LAISHA CAMPBELL Provider: Ashok Greene M.D. :1955 A ge:69 Y S ex:Male Date:05/23/2025 Address:[address] [place] [address], [place], [id number] Pcp:Jaron Leon Subjective: * Chief Complaints: * 1 . 2 months. 2. Needs labs, diabetic eye exam, Prevnar, & flu vaccines. * HPI: S houlder/Upper arm: The patient is here for a follow up on right shoulder pain. Pt states he is still having pain in his right shoulder as well as his low back. 69 year old male presents with c/o shoulder pain. A nkle/Foot: Toe is better. Iron tapes. E ndocrinology: Ozempic was denied. Appeal is possible. * ROS: C ONSTITUTIONAL: Positive for A nother physician seen since last visit?Yes Dr Santana for toe injury, Change in medication since last visit? No, Are you taking antibiotics? No, Are you taking steroids? No. D ERMATOLOGY: no R jason. n o [...] - [place] 07/2017, Colonoscopy, Dr. Almanza 01/2019, [place] toe, Dr. De Leon 10/12/2022. * Hospitalization/Major Diagno stic Procedure: A nkle Fracture 1979, [facility] ER/Stay - heart palpitations 08/02-01/2017. * [...] smoked. Alcohol: no. * Medications: T aking Cartia XT 240 MG Capsule Extended Release [...] 1 capsule by mouth once daily , Not-Taking OSTEO-BIFLEX 1 P.O. TWICE A DAY , Discontinued Ozempic (0.25 or 0.5 MG/DOSE) 2 MG/3ML Solution Pen-injector 0.25 mg Subcutaneous once a week , Medication List reviewed and reconciled with the patient * Allergies: B enadryl Allergy: restless legs - Side Effects. Objective: * Vitals: W t: 205.2, Temp: 98.5, BP: 126/84, HR: 78, Nurse: DAREN, Ht: 69.25, BMI:30.08. * Examination: G eneral Examination: General Appearance: [...] at deltoid insertion.. Assessment: * Assessment: 1. R ight shoulder pain, unspecified chronicity - M25.511 (Primary) 2 . O SA on CPAP - G47.33 Plan: * Treatment: 2.?NORMA on CPAP? Start CPAP machine and supplies -, -, as directed, as directed, 1, Refills 0.?? * Follow Up: 6 Weeks * Images: Billing Information: * Visit Code: 58755 Office Visit, Est Pt., Level 4. * Procedure Codes: * Electronic signature of Ashok Greene MD on 05/28/2025 at 02:59 PM EDT Sign off status: Pending * Provider: Ashok Greene M.D. Date: 05/23/2025 Generated for Barbarai ng/Jamal/eTransmitting on: 0 05/28/2025 02:59 PM EDT History and Physical Notes * HPI (History of Present Illness) Category Sub-Category Detail Notes Category Not es Shoulder/Upper arm shoulder pain Examination Category Sub-Category [...]
--- OUTSIDE RECORDS SUMMARY | 2025-05-28 15:00 | XMS_ITS | Encounter Summary ---
Author Organization [place] [address] Care Team Providers Care Lottery Manager Name Role Phone Oneil Escalera MD Unavailable [phone] Niels Greene MD Primary Care Provider [phone] Encounter Details Date Type Department Care Team (Late st Contact Info) Description 10/26/2017 Orders Only [facility] [address] [address] Oneil Escalera MD [address] [place] [address] Social History Tobacco Use Types Packs/Day [...] Office Visit [facility] [facility] [address] [place] [address] Janet Monet APRN [address] [place] [address] documented as of this encounter Procedures Procedure Name Priority Date/Time Associated Diagnosis Comments EP LAB RECORDINGS Routine 10/26/2017 12:30 PM EST documented in this encounter Results * EP LAB RECORDINGS (10/26/2017 12:30 PM EST) 10/26/2017 12:3 0 PM EST Oneil Escalera MD CARDIAC CATH ORDERABLES Final Result Performing Organization Address City/State/RUST Co de Phone Number [facility] 1 [place] [address] documented in this encounter Visit Diagnoses Not on filedocumented in this encounter Care Teams Lottery Manager Relationship Specialty Start Date End Date Niels Greene MD [facility] [place] [address] [place] [phone] PCP - General Family Medicine 08/12/17 Oneil Escalera MD [address] [place] [address] Consulting Physician Internal Medicine - Clinical Cardiac Electrophysiology 08/10/17 documented as of this encounter
--- OUTSIDE RECORDS SUMMARY | 2025-05-28 15:00 | XMS_ITS | Patient Health Record ---
[facility] Address [address] [facility] [address] [place] [id number] Care Team Providers Care Beater Out Name Role Phone Jaron Leon Primary Care Provider [phone] Ashok Greene Unavailable [phone] Ferny Santana Unavailable [phone] Allergies Allergen (clinical drug ingredient) Drug/Non Drug [...] Interpretation:Normal Performing Lab: Notes/Report: Test performed by [facility] [address] [place] [address] [place] [address] Zeb Clemens MD, Screenplay Writer CLIA: [id number] Sodium 141 135-145 mmol/L Potassium 4.6 3.5-5.3 [...] 0.4 <0.2-1.2 mg/dL A/G Ratio 2.3 1.1-2.5 X ray : Foot, right Reviewed date:05/22/2025 01:40:41 PM Interpretation:degenerative changes similar to prior exam Performing Lab: Notes/Report: degenerative changes similar to prior exam P-Microalbumin/Creatinine, R andom Urine Sample Reviewed date:10/03/2024 09:44:59 AM Interpretation:Normal Performing Lab: Notes/Report: CLIA: [id number] Zeb Clemens MD, Screenplay Writer [address] [place] [address] , [place] [address] Test performed by [facility] Albumin/Creatinine Ratio, Urine 5 0-30 ug/m g Microalbumin, Urine, Random 1.3 Creatinine, Urine 264.9 P-PSA Reviewed date:10/03/2024 09:44:59 AM Interpretation:Normal Performing Lab: Notes/Report: Test performed by [facility] [address] [place] [address] , [place] [address] Zeb Clemens MD, Screenplay Writer CLIA: [id number] PSA 1.13 <4.00 ng/mL Please note this [...] OV Performing Lab: Notes/Report: Test performed by [facility] [address] [place] [address] , [address], [place] [address] Zeb Clemens MD, Screenplay Writer CLIA: [id number] Sodium 139 135-145 mmol/L Potassium 4.5 3.5-5.3 [...] Duration) Notes Start Date End Date Status Cartia XT 240 MG 1 cap(s) orally once a day 10/26/2017 Active Omeprazole 20 MG Take 1 capsule by mouth once daily; Duration: 90 Active OSTEO-BIFLEX 1 P.O. TWICE A DAY Not-Taking CPAP machine and supplies - as directed as directed 05/23/2025 Active Pataday 0.2 % 1 gtt in each affected eye once a day; Duration: 10 day(s) 12/12/2019 Active PROBIOTICS P.O. DAILY Active EQ Allergy Relief (Cetirizine) 10 MG Take 1 tablet by mouth once daily; Duration: 90 Active Fluticasone Propionate 50 MCG/ACT Use 1 spray(s) in each nostril once daily; Duration: 60 Active Sertraline HCl 50 MG 1 tablet Orally Once a day; Duration: 90 days Active metFORMIN HCl 500 MG Take 1 tablet by mouth twice daily; Duration: 90 Active Mupirocin 2 % 1 application Externally Twice a day; Duration: 5 day(s) 03/19/2024 Active CPAP SUPPLIES DIRECTED diagnosis code: G47.33 Sleep apnea in adult 09/02/2021 Active Sulindac 200 MG 1 tab(s) orally 2 times a day prn; Duration: 90 days Active Immunizations Vaccine Route Administration Date Status [...] Status Risk Notes Problem Benign prostatic hypertrophy (183052809) Benign prostatic hypertrophy NOS (600.00) Active confirmed Problem Type II diabetes mellitus without complication (188974688) Type 2 diabetes mellitus without complications (E11.9) Active confirmed Problem Hyperuricemia (30807105) Hyperuricemia (E79.0) Active confirmed Problem Sciatica (47608501) Lumbago with sciatica, right side (M54.41) Active confirmed Problem Chronic pain (05353819) Other chronic pain (G89.29) Active confirmed Problem Sciatica (42090177) Lumbago with sciatica, left side (M54.42) Active confirmed Problem Chronic pain (03783427) Other chronic pain (G89.29) Active confirmed Problem Type II diabetes mellitus without complication (215050484) Type 2 diabetes mellitus without complication (E11.9) Active confirmed Problem Spinal stenosis of lumbosacral region (813306638) Spinal stenosis of lumbosacral region (M48.07) Active confirmed Problem Hyperlipidaemia (86206518) Hyperlipidemia, unspecified hyperlipidemia type (E78.5) Active confirmed Problem Shoulder joint pain (185113146) Acute pain of right shoulder (M25.511) Active confirmed Problem Reactive depression (73116441) Reactive depression (F32.9) Active confirmed Problem Allergic rhinitis caused by pollen (32738092) Seasonal allergic rhinitis due to pollen (J30.1) Active confirmed Problem Sciatica (04389989) Acute right- sided low back pain with right-sided sciatica (M54.41) Active confirmed Problem Sciatica (00217407) Acute left-s ided low back pain with left-sided sciatica (M54.42) Active confirmed Problem Cardiac dysrhythmia (586037543) Cardiac dysrhythmia, unspecified (I49.9) Active confirmed Problem Pure hypercholesterolemia (797707088) Pure hypercholesterolemia (E78.00) Active confirmed Problem Chronic idiopathic constipation (20993387) Chronic idiopathic constipation (K59.04) Active confirmed Problem Benign prostatic hypertrophy without outflow obstruction (371623165) Benign prostatic hyperplasia without lower urinary tract symptoms (N40.0) Active confirmed Problem Ventricular prematur e complex (disorder) (881616798) Ventricular ectopy (I49.3) Active confirmed Problem Bicipital tenosynovitis (94826201) Biceps tendinitis of right upper extremity (M75.21) Active confirmed Problem Paresthesia of finge r (811328865) Paresthesia of finger (R20.2) Active confirmed Problem Chest pain (71229673) Xyphoidalgia (R07.89) Acti ve confirmed Problem Low back pain (541632320) Low back pain, unspecified (M54.50) Active confirmed Problem Obstructive sleep apnea syndrome (11437606) NORMA on CPAP (G47.33) Active confirmed Vital Signs Heart Rate 78 /min 05/23/2025 Blood pressure diastolic 84 mm Hg 05/23/2025 Height 69.25 in 05/23/2025 Blood pressure systolic 126 mm Hg 05/23/2025 Weight 205.2 lbs 05/23/2025 BMI 30.08 kg/m2 05/23/2025 Encounters Encounter Location Date Provider Diagnosis [facility] [facility] [address] [place], [place] [id number] 09/24/2024 Ashok Greene Type 2 diabetes taye itus without complication E11.9 ; Biceps tendinitis of right upper extremity M75.21 and Benign prostatic hyperplasia without lower urinary tract symptoms N40.0 [facility] [address] [facility] [address] [place], [place] [id number] 10/17/2024 Ferny Clifton Encounter for immunization Z23 [facility] [address] [place] [facility] [address] [place], [place] [id number] 02/11/2025 Ferny Clifton Acute URI J06.9 ; Hyperlipidemia, unspecified hyperlipidemia type E78.5 and BMI 29.0-29.9,adult Z68.29 [facility] [address] [place] [facility] [address] [place], [place] [id number] 03/28/2025 Ashok Greene Type 2 diabetes taye itus without complication E11.9 ; Acute pain of right shoulder M25.511 ; Spinal stenosis of lumbosacral region M48.07 and BMI 29.0-29.9,adult Z68.29 [facility] [address] [place] [facility] [address] [place], [place] [id number] 05/20/2025 Ferny Clifton Pain in right foot M79.671 [facility] [address] [place], [place] [id number] 05/23/2025 Ashok Greene Right shoulder pain, unspecified chronicity M25.511 and NORMA on CPAP G47.33 [facility] [address] [place], [place] [id number] 10/04/2024 R Ilir Carolyn [facility] [address] [place], [place] [id number] 02/14/2025 R Ilir Carolyn [facility] [address] [place], [place] [id number] 04/02/2025 R Ilir Carolyn Type 2 diabetes taye itus without complication E11.9 [facility] [address] [place], [place] [id number] 04/03/2025 Ashok Greene [facility] [address] [place], [place] [id number] 04/08/2025 R Ilir Carolyn [facility] [address] [place], [place] [id number] 05/16/2025 Ashok Greene [facility] [address] [place], [place] [id number] 05/22/2025 Ferny Clifton Assessments Encounter Date Diagnosis (ICD Code) Assessment Notes Treatment Notes Treatment Clinical Notes Section Notes 09/24/2024 Type 2 diabetes mellitus without complication (ICD-10 - E11.9) 09/24/2024 Biceps tendinitis of right upper extremity (ICD-10 - M75.21) 10/17/2024 Encounter for immunization (ICD-10 - Z23) 02/11/2025 Acute URI (ICD-10 - J06.9) 03/28/2025 Acute pain of right shoulder (ICD-10 - M25.511) 04/02/2025 Type 2 diabetes mellitus without complication (ICD-10 - E11.9) 05/20/2025 Pain in right foot (ICD-10 - M79.671) 05/23/2025 Right shoulder pain, unspecified chronicity (ICD-10 - M25.511) 05/23/2025 NORMA on CPAP (ICD-10 - G47.33) 02/11/2025 Hyperlipidemia, unspecified hyperlipidemia type (ICD-10 - E78.5) 03/28/2025 Type 2 diabetes mellitus without complication (ICD-10 - E11.9) 03/28/2025 Spinal stenosis of lumbosacral region (ICD-10 - M48.07) 02/11/2025 BMI 29.0-29.9,adult (ICD-10 - Z68.29) 09/24/2024 Benign prostatic hyperplasia without lower urinary tract symptoms (ICD-10 - N40.0) 03/28/2025 BMI 29.0-29.9,adult (ICD-10 - Z68.29) Plan Of Treatment Pending Test Test Name Order Date X ray : Shoulder, right 05/23/2025 Next Appt Details Provider Name:Ashok Gonzalez er, 07/11/2025 02:00:00 PM, [address] [facility], [address], [place], [place], [id number], Insurance Providers Payer Name Payer Address Payer Phone Subscriber Number Group Number Insured Name Patient Relationship to Insured Coverage Start Date Coverage End Date MEDICARE PART B [address] [address] [place] [address] [id number] LAISHA COTE Self - patient is the insured [employer] [address] [place] [id number] ROCAEL LAISHA Self - patient is the insured Medications [...] Nose-Deviated Septum 2005 Tonsillectomy, uvula, soft palate 7 LT Knee Repair 01/2014 Heart Cath - [place] 07/2017 Colonoscopy, Dr. Almanza 01/2019 Dr. Moises Maurer 09/29 Hospitalization History Reason Date(Month/Year) [facility] ER/Stay - heart palpitations 08/02-0 01/2017 Ankle Fracture 1980
--- OUTSIDE RECORDS SUMMARY | 2025-05-28 15:00 | XMS_ITS | Clinical Summary ---
Author Organization [facility] Ar[facility] Address [address] [facility] [address] [place] [address] Phone Care Team Providers Care Electronic Resources Librarian Name Role Phone Oneil Escalera MD Unavailable [phone] Niels Greene MD Primary Care Provider [phone] Allergies Active Allergy Reactions Criticality Noted Date [...] Capsule by mouth daily. 90 Capsule 3 Active Active Problems Problem Noted Date Diagnosed [...] Heart Disease Mother Heart Attack Paternal Grandfather [place] at a ge 65 Anesth Problems Neg [...] Office Visit [facility] [address] [facility] [address] [place] [address] Janet Monet, MACHINE MAINTENANCE REPAIRER [address] [place] [address] Health Maintenance Due Date Last Done Comments [...] 12/25/2018 Hemoglobin A1c 06/16/2022 12/15/2021 COVID-19 Vaccine (2024- season) 2025 09/09/2021, 01/21/2021, 12/24/2020 Influenza Vaccine [...] - 145 mmol/L 10/26/2017 12:14 PM EST [facility] Potassium 4.4 3.5 - 5.0 mmol/L 10/26/2017 12:14 PM [facility] Chloride 101 98 - 107 mmol/L 10/26/2017 12:14 PM [facility] Total CO2 26 22 - 29 mmol/L 10/26/2017 12:14 PM [facility] Anion Gap 13 7 - 16 mmol/L 10/26/2017 12:14 PM [facility] Calcium 9.4 8.8 - 10.2 mg/dL 10/26/2017 12:14 PM [facility] Glucose Lvl 101(H) 82 - 100 mg/dL 10/26/2017 12:14 PM [facility] BUN 17 8 - 23 mg/dL 10/26/2017 12:14 PM [facility] Creatinine 1.15 0.67 - 1.30 mg/dL 10/26/2017 12:14 PM [facility] GFR Afr Am 78 mL/min/1.7 3 m2 10/26/2017 12:14 PM [facility] GFR Non Afr Am 67 mL/min/1.7 3 m2 10/26/2017 12:14 PM [facility] Comment: GFR Afr Am and [...] 11:17 AM EST 10/26/2017 11:30 AM EST [facility] - 10/26/2017 12:14 PM EST Notify paste worker if creatine is 1.5 or greater, and/or GFR <55, and/or potassium greater than or equal to 5.5 or less than or equal to 3.0. Do not repeat if done within past 10 days. us Oneil Escalera MD CHEMISTRY ORDERABLES Fin al Result [facility] [address] [place] [phone] from Last 3 Months or Most Recently Relevant to Health Maintenance Insurance MEDICARE [place] PART A AND B Member Subscriber Plan / Payer (Ef fective 2018-Present) Name:Ezio Atkins Member ID:[id number] Relation to Subscriber:Self Name:Ezio Atkins Subscriber ID:[id number] Payer ID:Not on file Group ID:Not on file Type:Not on file Address: [address] [employer] [facility] MEDICARE [place] PART A AND B MEDICINE [facility] INSURANCE Care Teams Electronic Resources Librarian Relationship Specialty Start Date End Date Niels Greene MD [facility] [address] [place] [address] PCP - General Family Medicine 08/12/17 Oneil Escalera MD [address] [place] [address] [place] [address] Consulting Physician Internal Medicine - Clinical Cardiac Electrophysiology 08/10/17
--- OUTSIDE RECORDS SUMMARY | 2025-05-28 15:00 | XMS_ITS | Clinical Summary ---
Author Organization [facility] Address [address] [place] [address] Care Team Providers Care Type Casting Machine Operator Name Role Phone Diogenes Greene MD Primary Care Provider Allergies Active Allergy Reactions Criticality Noted Date [...] 11/19/2020, 09/17/2020 Insurance MEDICARE A & [place] [address] [place] [address] Care Teams Type Casting Machine Operator Relationship Specialty Start Date End Date Diogenes Greene MD PCP - General Neurology 04/22/17
--- NOTE | 2025-05-28 15:01 | XR_ITS ---
FINAL REPORT CLINICAL HISTORY: RIGHT SHOULDER PAIN COMPARISON: None FINDINGS: RIGHT SHOULDER Three views demonstrate no acute fracture or dislocation. The visualized joint spaces are normally aligned. The soft tissues are unremarkable. IMPRESSION: No acute bony abnormality. Reviewed, Interpreted and Dictated by Jhonathan Sheikh MD Transcribed by Shruthi Dunbar Authenticated and [facility]
== END 2025-05-28 23:59 | disposition home or self-care (01) ==
LOC: RAD 14:57
PROVIDERS: PCP Family Medicine; Visit Provider Family Medicine
DX: M25.511 Pain in right shoulder (principal)
CPT/HCPCS: 73030

== ENCOUNTER 2025-07-30 10:52 | Outpatient (CLI) | payer MEDICARE, OTHER, SELFPAY ==
--- OUTSIDE RECORDS SUMMARY | 2025-07-30 10:55 | XMS_ITS | Clinical Summary ---
Author Organization [facility] Arrhythmia [facility] Address [address] [facility] [address] [place] [address] Phone Care Team Providers Care Director Mission Name Role Phone Oneil Escalera MD Unavailable [phone] Niels Greene MD Primary Care Provider [phone] Allergies Active Allergy Reactions Criticality Noted Date [...] Heart Disease Mother Heart Attack Paternal Grandfather [place] at a ge 65 Anesth Problems Neg [...] Office Visit [facility] [address] [facility] [address] [place] [address] Janet Monet, SERVICE STATION EQUIPMENT MECHANIC [address] [place] [address] Health Maintenance Due Date Last Done Comments Wellness Exam Medicare 1958 Lipids 12/03/1963 Diabetic Eye Exam 12/03/1971 Hepatitis C Screening 12/03/1971 Kidney Health: uACR 12/03/1971 Cologuard 1998 Colon Cancer Screening 1998 Colonoscopy 1998 FIT 1998 Sigmoidoscopy 1998 Virtual Colonography 1998 RSV or 60+ (1 - Risk 50-74 years 1-dose series) 12/03/2003 Kidney Health: eGFR 10/26/2018 10/26/2017, 8 Pneumococcal [...] - 145 mmol/L 10/26/2017 12:14 PM EST [facility] Potassium 4.4 3.5 - 5.0 mmol/L 10/26/2017 12:14 PM [facility] Chloride 101 98 - 107 mmol/L 10/26/2017 12:14 PM [facility] Total CO2 26 22 - 29 mmol/L 10/26/2017 12:14 PM [facility] Anion Gap 13 7 - 16 mmol/L 10/26/2017 12:14 PM [facility] Calcium 9.4 8.8 - 10.2 mg/dL 10/26/2017 12:14 PM [facility] Glucose Lvl 101(H) 82 - 100 mg/dL 10/26/2017 12:14 PM [facility] BUN 17 8 - 23 mg/dL 10/26/2017 12:14 PM [facility] Creatinine 1.15 0.67 - 1.30 mg/dL 10/26/2017 12:14 PM [facility] GFR Afr Am 78 mL/min/1.7 3 m2 10/26/2017 12:14 PM [facility] GFR Non Afr Am 67 mL/min/1.7 3 m2 10/26/2017 12:14 PM [facility] Comment: GFR Afr Am and [...] 11:17 AM EST 10/26/2017 11:30 AM EST [facility] - 10/26/2017 12:14 PM EST Notify lamp decorator if creatine is 1.5 or greater, and/or GFR <55, and/or potassium greater than or equal to 5.5 or less than or equal to 3.0. Do not repeat if done within past 10 days. us Oneil Escalera MD CHEMISTRY ORDERABLES Fin al Result [facility] [address] [place] [phone] from Last 3 Months or Most Recently Relevant to Health Maintenance Insurance MEDICARE [place] PART A AND B Member Subscriber Plan / Payer (Ef fective 2018-Present) Name:Ezio Atkins Member ID:[id number] Relation to Subscriber:Self Name:Ezio Atkins Subscriber ID:[id number] Payer ID:Not on file Group ID:Not on file Type:Not on file Address: [address] [employer] [facility] MEDICARE [place] PART A AND B [facility] INSURANCE Care Teams Director Mission Relationship Specialty Start Date End Date Niels Greene MD [facility] [address] [place] [address] PCP - General Family Medicine 08/12/17 Oneil Escalera MD [address] [place] [address] [place] [address] Consulting Physician Internal Medicine - Clinical Cardiac Electrophysiology 08/10/17
--- OUTSIDE RECORDS SUMMARY | 2025-07-30 10:55 | XMS_ITS | Encounter Summary ---
Author Organization [place] [address] Care Team Providers Care Job Press Feeder Name Role Phone Oneil Escalera MD Unavailable [phone] Niels Greene MD Primary Care Provider [phone] Encounter Details Date Type Department Care Team (Late st Contact Info) Description 10/26/2017 Orders Only [facility] [address] [phone] Oneil Escalera MD [address] [place] [address] Social History Tobacco Use Types Packs/Day [...] Office Visit [facility] [address] [facility] [address] [place] [phone] Janet Monet APRN [address] [place] [address] documented as of this encounter Procedures Procedure Name Priority Date/Time Associated Diagnosis Comments EP LAB RECORDINGS Routine 10/26/2017 12:30 PM EST documented in this encounter Results * EP LAB RECORDINGS (10/26/2017 12:30 PM EST) 10/26/2017 12:3 0 PM EST Oneil Escalera MD CARDIAC CATH ORDERABLES Final Result Performing Organization Address City/State/[facility] Co de Phone Number [facility] [address] [place] [address] documented in this encounter Visit Diagnoses Not on filedocumented in this encounter Care Teams Job Press Feeder Relationship Specialty Start Date End Date Niels Greene MD [facility] [place] [address] [place] [phone] PCP - General Family Medicine 08/12/17 Oneil Escalera MD [address] [place] [address] Consulting Physician Internal Medicine - Clinical Cardiac Electrophysiology 08/10/17 documented as of this encounter
--- OUTSIDE RECORDS SUMMARY | 2025-07-30 10:55 | XMS_ITS | Clinical Summary ---
Author Organization [facility] Address [address] [place] [address] Care Team Providers Care Home School Teacher Name Role Phone Diogenes Greene MD Primary Care Provider [phone] Allergies Active Allergy Reactions Criticality Noted Date [...] Pneumococcal Vaccine 50+ (2 of 2 - PCV20 or PCV21) 12/26/2019 12/25/2018 INFLUENZA VACCINE 03/29/2025 08/04/2021, , 06/21/2019, Additional history exists COVID-19 Vaccine (4 - 2024-2 6 season) 2025 09/09/2021, 01/21/2021, 12/24/2020 TDAP/TD VACCINES (2 - Td or Tdap) 12/25/2028 019, 01/24/2002 ZOSTER VACCINE Completed 11/19/2020, 09/17/2020 Insurance MEDICARE A & B [facility] Care Teams Home School Teacher Relationship Specialty Start Date End Date Diogenes Greene MD PCP - General Neurology 04/22/17
[2025-07-30 12:32] LABS: Cholesterol 136 mg/dl (140-200); HDL Cholesterol 38 mg/dl (40-60); Triglycerides 164 mg/dl (30-150)
== END 2025-07-30 23:59 | disposition home or self-care (01) ==
LOC: LAB 10:53
PROVIDERS: PCP Family Medicine; Visit Provider Family Medicine
DX: E78.5 Hyperlipidemia, unspecified (principal)
CPT/HCPCS: 36415; 80061